=== PATIENT | male | born 1980 | race Caucasian/White ===

== ENCOUNTER → 2017-12-10 | Outpatient (CLI) | payer MEDICARE | END | disposition home or self-care (01) | LOC: PMGWOUND 13:03 | DX: I87.313 Chronic venous hypertension (idiopathic) with ulcer of bilateral lower extremity (principal); L97.222 Non-pressure chronic ulcer of left calf with fat layer exposed; L97.212 Non-pressure chronic ulcer of right calf with fat layer exposed; F41.9 Anxiety disorder, unspecified; F42.9 Obsessive-compulsive disorder, unspecified | CPT/HCPCS: 29581; 97597; 97598 ==

== ENCOUNTER → 2017-12-12 | Outpatient (CLI) | payer MEDICARE | END | disposition home or self-care (01) | LOC: PMGWOUND 09:49 | DX: I87.313 Chronic venous hypertension (idiopathic) with ulcer of bilateral lower extremity (principal); L97.212 Non-pressure chronic ulcer of right calf with fat layer exposed; L97.222 Non-pressure chronic ulcer of left calf with fat layer exposed; F41.9 Anxiety disorder, unspecified; F42.9 Obsessive-compulsive disorder, unspecified | CPT/HCPCS: 29581; 97597; 97598 ==

== ENCOUNTER → 2017-12-17 | Outpatient (CLI) | payer MEDICARE | END | disposition home or self-care (01) | LOC: PMGWOUND 12:50 | DX: I87.313 Chronic venous hypertension (idiopathic) with ulcer of bilateral lower extremity (principal); L97.212 Non-pressure chronic ulcer of right calf with fat layer exposed; L97.222 Non-pressure chronic ulcer of left calf with fat layer exposed; F41.9 Anxiety disorder, unspecified | CPT/HCPCS: 97597; 97598 ==

== ENCOUNTER → 2017-12-24 | Outpatient (CLI) | payer MEDICARE | END | disposition home or self-care (01) | LOC: PMGWOUND 13:36 | DX: I87.313 Chronic venous hypertension (idiopathic) with ulcer of bilateral lower extremity (principal); L97.212 Non-pressure chronic ulcer of right calf with fat layer exposed; L97.222 Non-pressure chronic ulcer of left calf with fat layer exposed; F41.9 Anxiety disorder, unspecified | CPT/HCPCS: 29581; 97597; 97598 ==

== ENCOUNTER → 2017-12-31 | Outpatient (CLI) | payer MEDICARE | END | disposition home or self-care (01) | LOC: PMGWOUND 10:00 | DX: I87.313 Chronic venous hypertension (idiopathic) with ulcer of bilateral lower extremity (principal); L97.212 Non-pressure chronic ulcer of right calf with fat layer exposed; L97.222 Non-pressure chronic ulcer of left calf with fat layer exposed; F41.9 Anxiety disorder, unspecified | CPT/HCPCS: 29581 ==

== ENCOUNTER → 2018-01-07 | Outpatient (CLI) | payer MEDICARE | END | disposition home or self-care (01) | LOC: PMGWOUND 12:51 | DX: I87.313 Chronic venous hypertension (idiopathic) with ulcer of bilateral lower extremity (principal); L97.212 Non-pressure chronic ulcer of right calf with fat layer exposed; L97.222 Non-pressure chronic ulcer of left calf with fat layer exposed; F41.9 Anxiety disorder, unspecified | CPT/HCPCS: 97597; 97598 ==

== ENCOUNTER → 2018-01-14 | Outpatient (CLI) | payer MEDICARE | END | disposition home or self-care (01) | LOC: PMGWOUND 11:48 | DX: I87.313 Chronic venous hypertension (idiopathic) with ulcer of bilateral lower extremity (principal); L97.222 Non-pressure chronic ulcer of left calf with fat layer exposed; L97.212 Non-pressure chronic ulcer of right calf with fat layer exposed; F41.9 Anxiety disorder, unspecified; F42.9 Obsessive-compulsive disorder, unspecified | CPT/HCPCS: 29581; 97597; 97598 ==

== ENCOUNTER → 2018-01-23 | Outpatient (CLI) | payer MEDICARE | END | disposition home or self-care (01) | LOC: PMGWOUND 11:50 | DX: I87.313 Chronic venous hypertension (idiopathic) with ulcer of bilateral lower extremity (principal); L97.222 Non-pressure chronic ulcer of left calf with fat layer exposed; L97.212 Non-pressure chronic ulcer of right calf with fat layer exposed; F41.9 Anxiety disorder, unspecified; F42.9 Obsessive-compulsive disorder, unspecified | CPT/HCPCS: 29581; 97597; 97598 ==

== ENCOUNTER → 2018-01-27 | Outpatient (CLI) | payer MEDICARE | END | disposition home or self-care (01) | LOC: PMGWOUND 12:25 | DX: I87.313 Chronic venous hypertension (idiopathic) with ulcer of bilateral lower extremity (principal); L97.222 Non-pressure chronic ulcer of left calf with fat layer exposed; L97.212 Non-pressure chronic ulcer of right calf with fat layer exposed; F41.9 Anxiety disorder, unspecified; F42.9 Obsessive-compulsive disorder, unspecified | CPT/HCPCS: 29581; 97597; 97598 ==

== ENCOUNTER → 2018-02-04 | Outpatient (CLI) | payer MEDICARE | END | disposition home or self-care (01) | LOC: PMGWOUND 13:35 | DX: I87.313 Chronic venous hypertension (idiopathic) with ulcer of bilateral lower extremity (principal); L97.212 Non-pressure chronic ulcer of right calf with fat layer exposed; L97.222 Non-pressure chronic ulcer of left calf with fat layer exposed; F41.9 Anxiety disorder, unspecified | CPT/HCPCS: 29581; 97597 ==

== ENCOUNTER → 2018-02-11 | Outpatient (CLI) | payer MEDICARE | END | disposition home or self-care (01) | LOC: PMGWOUND 12:25 | DX: I87.313 Chronic venous hypertension (idiopathic) with ulcer of bilateral lower extremity (principal); L97.212 Non-pressure chronic ulcer of right calf with fat layer exposed; L97.222 Non-pressure chronic ulcer of left calf with fat layer exposed; F41.9 Anxiety disorder, unspecified | CPT/HCPCS: 29581 ==

== ENCOUNTER → 2018-02-18 | Outpatient (CLI) | payer MEDICARE | END | disposition home or self-care (01) | LOC: PMGWOUND 13:07 | DX: I87.313 Chronic venous hypertension (idiopathic) with ulcer of bilateral lower extremity (principal); L97.212 Non-pressure chronic ulcer of right calf with fat layer exposed; L97.222 Non-pressure chronic ulcer of left calf with fat layer exposed; F41.9 Anxiety disorder, unspecified | CPT/HCPCS: 17250; 97597; 97598 ==

== ENCOUNTER → 2018-02-25 | Outpatient (CLI) | payer MEDICARE | END | disposition home or self-care (01) | LOC: PMGWOUND 12:28 | DX: I87.313 Chronic venous hypertension (idiopathic) with ulcer of bilateral lower extremity (principal); L97.212 Non-pressure chronic ulcer of right calf with fat layer exposed; L97.222 Non-pressure chronic ulcer of left calf with fat layer exposed; F41.9 Anxiety disorder, unspecified | CPT/HCPCS: 29581; 97597; 97598 ==

== ENCOUNTER → 2018-03-04 | Outpatient (CLI) | payer MEDICARE | END | disposition home or self-care (01) | LOC: PMGWOUND 13:26 | DX: I87.313 Chronic venous hypertension (idiopathic) with ulcer of bilateral lower extremity (principal); L97.212 Non-pressure chronic ulcer of right calf with fat layer exposed; L97.222 Non-pressure chronic ulcer of left calf with fat layer exposed; F41.9 Anxiety disorder, unspecified | CPT/HCPCS: 97597 ==

== ENCOUNTER → 2018-03-11 | Outpatient (CLI) | payer MEDICARE | END | disposition home or self-care (01) | LOC: PMGWOUND 13:15 | DX: I87.313 Chronic venous hypertension (idiopathic) with ulcer of bilateral lower extremity (principal); L97.212 Non-pressure chronic ulcer of right calf with fat layer exposed; L97.222 Non-pressure chronic ulcer of left calf with fat layer exposed; F41.9 Anxiety disorder, unspecified | CPT/HCPCS: 29581 ==

== ENCOUNTER → 2018-03-18 | Outpatient (CLI) | payer MEDICARE | END | disposition home or self-care (01) | LOC: PMGWOUND 12:58 | DX: I87.313 Chronic venous hypertension (idiopathic) with ulcer of bilateral lower extremity (principal); L97.212 Non-pressure chronic ulcer of right calf with fat layer exposed; L97.222 Non-pressure chronic ulcer of left calf with fat layer exposed; F41.9 Anxiety disorder, unspecified | CPT/HCPCS: 29581; 97597; 97598 ==

== ENCOUNTER → 2018-03-25 | Outpatient (CLI) | payer MEDICARE | END | disposition home or self-care (01) | LOC: PMGWOUND 12:40 | DX: I87.313 Chronic venous hypertension (idiopathic) with ulcer of bilateral lower extremity (principal); L97.212 Non-pressure chronic ulcer of right calf with fat layer exposed; L97.222 Non-pressure chronic ulcer of left calf with fat layer exposed; F41.9 Anxiety disorder, unspecified | CPT/HCPCS: 29581 ==

== ENCOUNTER → 2018-04-01 | Outpatient (CLI) | payer MEDICARE | END | disposition home or self-care (01) | LOC: PMGWOUND 12:55 | DX: I87.313 Chronic venous hypertension (idiopathic) with ulcer of bilateral lower extremity (principal); L97.212 Non-pressure chronic ulcer of right calf with fat layer exposed; L97.222 Non-pressure chronic ulcer of left calf with fat layer exposed; F41.9 Anxiety disorder, unspecified | CPT/HCPCS: 29581 ==

== ENCOUNTER → 2018-04-08 | Outpatient (CLI) | payer MEDICARE | END | disposition home or self-care (01) | LOC: PMGWOUND 12:46 | DX: I87.313 Chronic venous hypertension (idiopathic) with ulcer of bilateral lower extremity (principal); L97.212 Non-pressure chronic ulcer of right calf with fat layer exposed; L97.222 Non-pressure chronic ulcer of left calf with fat layer exposed; F41.9 Anxiety disorder, unspecified | CPT/HCPCS: 29581 ==

== ENCOUNTER → 2018-04-15 | Outpatient (CLI) | payer MEDICARE | END | disposition home or self-care (01) | LOC: PMGWOUND 12:49 | DX: I87.313 Chronic venous hypertension (idiopathic) with ulcer of bilateral lower extremity (principal); L97.212 Non-pressure chronic ulcer of right calf with fat layer exposed; L97.222 Non-pressure chronic ulcer of left calf with fat layer exposed; F41.9 Anxiety disorder, unspecified | CPT/HCPCS: 29581; 97597 ==

== ENCOUNTER → 2018-04-22 | Outpatient (CLI) | payer MEDICARE | END | disposition home or self-care (01) | LOC: PMGWOUND 13:05 | DX: I87.313 Chronic venous hypertension (idiopathic) with ulcer of bilateral lower extremity (principal); L97.212 Non-pressure chronic ulcer of right calf with fat layer exposed; L97.222 Non-pressure chronic ulcer of left calf with fat layer exposed; L97.311 Non-pressure chronic ulcer of right ankle limited to breakdown of skin; F41.9 Anxiety disorder, unspecified | CPT/HCPCS: 29581 ==

== ENCOUNTER → 2018-04-29 | Outpatient (CLI) | payer MEDICARE | END | disposition home or self-care (01) | LOC: PMGWOUND 13:19 | DX: I87.313 Chronic venous hypertension (idiopathic) with ulcer of bilateral lower extremity (principal); L97.212 Non-pressure chronic ulcer of right calf with fat layer exposed; L97.222 Non-pressure chronic ulcer of left calf with fat layer exposed; F41.9 Anxiety disorder, unspecified | CPT/HCPCS: 29581; 97597 ==

== ENCOUNTER → 2018-05-06 | Outpatient (CLI) | payer MEDICARE | END | disposition home or self-care (01) | LOC: PMGWOUND 13:37 | DX: I87.312 Chronic venous hypertension (idiopathic) with ulcer of left lower extremity (principal); L97.222 Non-pressure chronic ulcer of left calf with fat layer exposed; F41.9 Anxiety disorder, unspecified; L84 Corns and callosities | CPT/HCPCS: 29581; 97597; 97598 ==

== ENCOUNTER → 2018-05-13 | Outpatient (CLI) | payer MEDICARE | END | disposition home or self-care (01) | LOC: PMGWOUND 13:20 | DX: I87.313 Chronic venous hypertension (idiopathic) with ulcer of bilateral lower extremity (principal); L97.222 Non-pressure chronic ulcer of left calf with fat layer exposed; L89.899 Pressure ulcer of other site, unspecified stage; F41.9 Anxiety disorder, unspecified; L84 Corns and callosities | CPT/HCPCS: 11042; 29581; 97597 ==

== ENCOUNTER → 2018-05-20 | Outpatient (CLI) | payer MEDICARE | END | disposition home or self-care (01) | LOC: PMGWOUND 13:31 | DX: I87.313 Chronic venous hypertension (idiopathic) with ulcer of bilateral lower extremity (principal); L97.222 Non-pressure chronic ulcer of left calf with fat layer exposed; L97.211 Non-pressure chronic ulcer of right calf limited to breakdown of skin; F41.9 Anxiety disorder, unspecified; L84 Corns and callosities | CPT/HCPCS: 29581 ==

== ENCOUNTER → 2018-05-27 | Outpatient (CLI) | payer MEDICARE | END | disposition home or self-care (01) | LOC: PMGWOUND 12:47 | DX: I87.313 Chronic venous hypertension (idiopathic) with ulcer of bilateral lower extremity (principal); L97.222 Non-pressure chronic ulcer of left calf with fat layer exposed; L97.211 Non-pressure chronic ulcer of right calf limited to breakdown of skin; F41.9 Anxiety disorder, unspecified; L84 Corns and callosities | CPT/HCPCS: 29581 ==

== ENCOUNTER → 2018-06-03 | Outpatient (CLI) | payer MEDICARE | END | disposition home or self-care (01) | LOC: PMGWOUND 13:31 | DX: I87.313 Chronic venous hypertension (idiopathic) with ulcer of bilateral lower extremity (principal); L97.222 Non-pressure chronic ulcer of left calf with fat layer exposed; L97.211 Non-pressure chronic ulcer of right calf limited to breakdown of skin; F41.9 Anxiety disorder, unspecified; L84 Corns and callosities | CPT/HCPCS: 29580; 29581; 97597 ==

== ENCOUNTER → 2018-06-10 | Outpatient (CLI) | payer MEDICARE | END | disposition home or self-care (01) | LOC: PMGWOUND 12:51 | DX: I87.313 Chronic venous hypertension (idiopathic) with ulcer of bilateral lower extremity (principal); L97.222 Non-pressure chronic ulcer of left calf with fat layer exposed; L97.211 Non-pressure chronic ulcer of right calf limited to breakdown of skin; F41.9 Anxiety disorder, unspecified; L84 Corns and callosities | CPT/HCPCS: 29580; 97597 ==

== ENCOUNTER → 2018-06-17 | Outpatient (CLI) | payer MEDICARE | END | disposition home or self-care (01) | LOC: PMGWOUND 13:02 | DX: I87.313 Chronic venous hypertension (idiopathic) with ulcer of bilateral lower extremity (principal); L97.222 Non-pressure chronic ulcer of left calf with fat layer exposed; L97.811 Non-pressure chronic ulcer of other part of right lower leg limited to breakdown of skin; F41.9 Anxiety disorder, unspecified | CPT/HCPCS: 29580; 97597 ==

== ENCOUNTER → 2018-06-24 | Outpatient (CLI) | payer MEDICARE | END | disposition home or self-care (01) | LOC: PMGWOUND 12:26 | DX: I87.312 Chronic venous hypertension (idiopathic) with ulcer of left lower extremity (principal); L97.222 Non-pressure chronic ulcer of left calf with fat layer exposed; F41.9 Anxiety disorder, unspecified | CPT/HCPCS: 29581 ==

== ENCOUNTER → 2018-07-01 | Outpatient (CLI) | payer MEDICARE | END | disposition home or self-care (01) | LOC: PMGWOUND 13:22 | DX: I87.312 Chronic venous hypertension (idiopathic) with ulcer of left lower extremity (principal); L97.222 Non-pressure chronic ulcer of left calf with fat layer exposed; F41.9 Anxiety disorder, unspecified | CPT/HCPCS: 11042; 29581 ==

== ENCOUNTER → 2018-07-08 | Outpatient (CLI) | payer MEDICARE | END | disposition home or self-care (01) | LOC: PMGWOUND 12:58 | DX: I87.312 Chronic venous hypertension (idiopathic) with ulcer of left lower extremity (principal); L97.222 Non-pressure chronic ulcer of left calf with fat layer exposed; F41.9 Anxiety disorder, unspecified | CPT/HCPCS: 29581; 97597 ==

== ENCOUNTER → 2018-07-15 | Outpatient (CLI) | payer MEDICARE ==
[2017-12-06 15:00] VITALS: BP 128/78
[~2018-07-15] MED LIST: ASCO500T2 PO; ASPI325T8 PO; DOXY100T9 PO; MULT1TAB52 PO; ZINC220C5 PO
== END | disposition home or self-care (01) ==
LOC: PMGWOUND 13:00
PROVIDERS: ATTEND Emergency Medicine Undersea and Hyperbaric Medicine
DX: I87.312 Chronic venous hypertension (idiopathic) with ulcer of left lower extremity (principal); L97.222 Non-pressure chronic ulcer of left calf with fat layer exposed; L84 Corns and callosities; F41.9 Anxiety disorder, unspecified
CPT/HCPCS: 97597

== ENCOUNTER → 2018-07-22 | Outpatient (CLI) | payer MEDICARE ==
[2017-12-06 15:00] VITALS: BP 128/78
== END | disposition home or self-care (01) ==
LOC: PMGWOUND 07-15 13:01
PROVIDERS: ATTEND Emergency Medicine Undersea and Hyperbaric Medicine
DX: I87.312 Chronic venous hypertension (idiopathic) with ulcer of left lower extremity (principal); L97.222 Non-pressure chronic ulcer of left calf with fat layer exposed; L97.322 Non-pressure chronic ulcer of left ankle with fat layer exposed; F41.9 Anxiety disorder, unspecified; L84 Corns and callosities; F42.9 Obsessive-compulsive disorder, unspecified
CPT/HCPCS: 99214; G0463

== ENCOUNTER → 2018-07-29 | Outpatient (CLI) | payer MEDICARE ==
[2017-12-06 15:00] VITALS: BP 128/78
== END | disposition home or self-care (01) ==
LOC: PMGWOUND 11:31
PROVIDERS: ATTEND Emergency Medicine Undersea and Hyperbaric Medicine
DX: I87.312 Chronic venous hypertension (idiopathic) with ulcer of left lower extremity (principal); L97.222 Non-pressure chronic ulcer of left calf with fat layer exposed; F41.9 Anxiety disorder, unspecified; F42.9 Obsessive-compulsive disorder, unspecified; L84 Corns and callosities
CPT/HCPCS: 29580; 29581

== ENCOUNTER → 2018-07-29 | Outpatient (CLI) | payer MEDICARE ==
[2017-12-06 15:00] VITALS: BP 128/78
--- NOTE | 2018-07-29 15:10 | RAD ---
Bilateral lower extremity venous insufficiency ultrasound exam, 07/29/2018: HISTORY: Nonhealing left leg ulcer, bilateral discoloration Duplex evaluation of the greater saphenous and lesser saphenous veins was performed including grayscale, color-flow and spectral Doppler analysis. On the right, there is significant reflux in the greater saphenous vein which measures 7 mm in diameter near the saphenofemoral junction and demonstrates a reflux time of 1.7 seconds. In the upper right calf the greater saphenous vein measures 3.7 mm and demonstrates a reflux time of 2.3 seconds. A single incompetent perforating vein was identified in the right lower leg, approximately 18 cm up from the ankle. The right lesser saphenous vein measures approximately 4 mm and also demonstrates significant reflux with a reflux time of 1.5 seconds. On the left, the greater saphenous vein measures 7.9 mm at the level of the saphenofemoral junction and demonstrates a reflux time of 1.1 second. In the mid left calf the greater saphenous vein measures 3.4 mm with a reflux time of 2.7 seconds. Three incompetent perforating veins are noted in the left lower leg as fully delineated on the technologist worksheet. These drain into the regions of the patient's ulcers. The left lesser saphenous vein measures 5.1 cm at the upper calf level and demonstrates a reflux time 1.6 seconds. IMPRESSION: 1. Significant venous reflux is identified in the greater saphenous and lesser saphenous veins in both lower extremities as described above. 2. A single incompetent perforating vein is noted in the right calf and 3 incompetent perforating veins in the left calf, as delineated on the technologist worksheet available in the [employer] system. Electronically signed by: Porter Quick MD (07/29/2018 3:07 PM) [facility]
== END | disposition home or self-care (01) ==
LOC: US 14:34
PROVIDERS: ATTEND Emergency Medicine Undersea and Hyperbaric Medicine
DX: I87.312 Chronic venous hypertension (idiopathic) with ulcer of left lower extremity (principal); L97.222 Non-pressure chronic ulcer of left calf with fat layer exposed; F41.9 Anxiety disorder, unspecified
CPT/HCPCS: 93970

== ENCOUNTER → 2018-08-12 | Outpatient (CLI) | payer MEDICARE ==
[2017-12-06 15:00] VITALS: BP 128/78
== END | disposition home or self-care (01) ==
LOC: PMGWOUND 13:02
PROVIDERS: ATTEND Emergency Medicine Undersea and Hyperbaric Medicine
DX: I87.312 Chronic venous hypertension (idiopathic) with ulcer of left lower extremity (principal); L97.222 Non-pressure chronic ulcer of left calf with fat layer exposed; L84 Corns and callosities; F41.9 Anxiety disorder, unspecified; F42.9 Obsessive-compulsive disorder, unspecified
CPT/HCPCS: 29580; 29581; 97597

== ENCOUNTER → 2018-08-20 | Outpatient (CLI) | payer MEDICARE ==
[2017-12-06 15:00] VITALS: BP 128/78
== END | disposition home or self-care (01) ==
LOC: PMGWOUND 12:02
PROVIDERS: ATTEND Preventive Medicine Undersea and Hyperbaric Medicine
DX: I87.312 Chronic venous hypertension (idiopathic) with ulcer of left lower extremity (principal); L97.222 Non-pressure chronic ulcer of left calf with fat layer exposed; L84 Corns and callosities; F41.9 Anxiety disorder, unspecified; F42.9 Obsessive-compulsive disorder, unspecified
CPT/HCPCS: 29580

== ENCOUNTER → 2018-08-26 | Outpatient (CLI) | payer MEDICARE ==
[2017-12-06 15:00] VITALS: BP 128/78
== END | disposition home or self-care (01) ==
LOC: PMGWOUND 12:48
PROVIDERS: ATTEND Emergency Medicine Undersea and Hyperbaric Medicine
DX: I87.313 Chronic venous hypertension (idiopathic) with ulcer of bilateral lower extremity (principal); L97.222 Non-pressure chronic ulcer of left calf with fat layer exposed; L84 Corns and callosities; F41.9 Anxiety disorder, unspecified
CPT/HCPCS: 29580; 97597

== ENCOUNTER → 2018-09-02 | Outpatient (CLI) | payer MEDICARE ==
[2017-12-06 15:00] VITALS: BP 128/78
== END | disposition home or self-care (01) ==
LOC: PMGWOUND 13:18
PROVIDERS: ATTEND Emergency Medicine Undersea and Hyperbaric Medicine
DX: I87.313 Chronic venous hypertension (idiopathic) with ulcer of bilateral lower extremity (principal); L97.222 Non-pressure chronic ulcer of left calf with fat layer exposed; L97.321 Non-pressure chronic ulcer of left ankle limited to breakdown of skin; L84 Corns and callosities; F41.9 Anxiety disorder, unspecified
CPT/HCPCS: 97597

== ENCOUNTER → 2018-09-09 | Outpatient (CLI) | payer MEDICARE ==
[2017-12-06 15:00] VITALS: BP 128/78
== END | disposition home or self-care (01) ==
LOC: PMGWOUND 13:15
PROVIDERS: ATTEND Emergency Medicine Undersea and Hyperbaric Medicine
DX: I87.313 Chronic venous hypertension (idiopathic) with ulcer of bilateral lower extremity (principal); L97.222 Non-pressure chronic ulcer of left calf with fat layer exposed; L84 Corns and callosities; F41.9 Anxiety disorder, unspecified
CPT/HCPCS: 99214; G0463

== ENCOUNTER → 2018-09-18 | Outpatient (CLI) | payer MEDICARE ==
[2017-12-06 15:00] VITALS: BP 128/78
--- NOTE | 2018-09-18 11:33 | RAD ---
MR#: [id number] Date of Study: 09/18/2018 Ordering Physician: LUIS E TOWNSEND, Referring Physician: ILANA POP Tech: Mary Kate Amaya RDMS RVT APPROVED REPORT Bilateral Lower Extremity Venous Study for DVT Patient Location: OUT-PATIENT Indications VENOUS INSUFFICIENCY Findings The bilateral lower extremity deep veins were evaluated for thrombus with color Doppler, spectral and grayscale images. On the right the grayscale images of the common femoral, superficial femoral and popliteal veins do n ot demonstrate any evidence of thrombus and these veins appear to be compressible. The below-knee vei ns were not well visualized but grossly appear to be compressible. Spectral imaging and color Doppler do not reveal any evidence of obstruction to flow with normal respirophasic variation above the knee . Below the knee there is spontaneous flow noted. On the left, the grayscale images of the common femoral, superficial femoral and popliteal veins do n ot demonstrate any evidence of thrombus and these veins appear to be compressible. The below-knee vei ns again were not well visualized but grossly appear to be compressible. Spectral imaging and color D oppler do not reveal any evidence of obstruction to flow with normal respirophasic variation above th e knee. The below-knee veins demonstrate spontaneous flow. Critical Notification Critical Value: No <Conclusion> Negative for DVT in the bilateral lower extremities. Signed by : Jamshid Lane, Electronically Approved : 09/18/2018 11:32:13
== END | disposition home or self-care (01) ==
LOC: US 10:10
PROVIDERS: ATTEND Emergency Medicine Undersea and Hyperbaric Medicine
DX: I87.313 Chronic venous hypertension (idiopathic) with ulcer of bilateral lower extremity (principal); L97.222 Non-pressure chronic ulcer of left calf with fat layer exposed; L97.321 Non-pressure chronic ulcer of left ankle limited to breakdown of skin; L84 Corns and callosities; F41.9 Anxiety disorder, unspecified
CPT/HCPCS: 29581; 93970; 97597

== ENCOUNTER → 2018-09-23 | Outpatient (CLI) | payer MEDICARE ==
[2017-12-06 15:00] VITALS: BP 128/78
== END | disposition home or self-care (01) ==
LOC: PMGWOUND 12:09
PROVIDERS: ATTEND Emergency Medicine Undersea and Hyperbaric Medicine
DX: I87.312 Chronic venous hypertension (idiopathic) with ulcer of left lower extremity (principal); L97.222 Non-pressure chronic ulcer of left calf with fat layer exposed; L97.321 Non-pressure chronic ulcer of left ankle limited to breakdown of skin; L84 Corns and callosities; F41.9 Anxiety disorder, unspecified
CPT/HCPCS: 29581

== ENCOUNTER → 2018-09-30 | Outpatient (CLI) | payer MEDICARE ==
[2017-12-06 15:00] VITALS: BP 128/78
== END | disposition home or self-care (01) ==
LOC: PMGWOUND 12:32
PROVIDERS: ATTEND Emergency Medicine Undersea and Hyperbaric Medicine
DX: I87.312 Chronic venous hypertension (idiopathic) with ulcer of left lower extremity (principal); L97.222 Non-pressure chronic ulcer of left calf with fat layer exposed; L84 Corns and callosities; F41.9 Anxiety disorder, unspecified
CPT/HCPCS: 29581

== ENCOUNTER → 2018-10-07 | Outpatient (CLI) | payer MEDICARE ==
[2017-12-06 15:00] VITALS: BP 128/78
== END | disposition home or self-care (01) ==
LOC: PMGWOUND 13:23
PROVIDERS: ATTEND Emergency Medicine Undersea and Hyperbaric Medicine
DX: I87.312 Chronic venous hypertension (idiopathic) with ulcer of left lower extremity (principal); L97.222 Non-pressure chronic ulcer of left calf with fat layer exposed; L84 Corns and callosities; F41.9 Anxiety disorder, unspecified
CPT/HCPCS: 29581

== ENCOUNTER → 2018-10-14 | Outpatient (CLI) | payer MEDICARE ==
[2017-12-06 15:00] VITALS: BP 128/78
== END | disposition home or self-care (01) ==
LOC: PMGWOUND 12:16
PROVIDERS: ATTEND Emergency Medicine Undersea and Hyperbaric Medicine
DX: I87.313 Chronic venous hypertension (idiopathic) with ulcer of bilateral lower extremity (principal); L97.222 Non-pressure chronic ulcer of left calf with fat layer exposed; L84 Corns and callosities; F41.9 Anxiety disorder, unspecified
CPT/HCPCS: 29581; 97597

== ENCOUNTER → 2018-10-22 | Outpatient (CLI) | payer MEDICARE ==
[2017-12-06 15:00] VITALS: BP 128/78
== END | disposition home or self-care (01) ==
LOC: PMGWOUND 11:19
PROVIDERS: ATTEND Preventive Medicine Undersea and Hyperbaric Medicine
DX: I87.312 Chronic venous hypertension (idiopathic) with ulcer of left lower extremity (principal); L97.222 Non-pressure chronic ulcer of left calf with fat layer exposed; L84 Corns and callosities; F41.9 Anxiety disorder, unspecified
CPT/HCPCS: 29581

== ENCOUNTER → 2018-10-28 | Outpatient (CLI) | payer MEDICARE ==
[2017-12-06 15:00] VITALS: BP 128/78
== END | disposition home or self-care (01) ==
LOC: PMGWOUND 12:15
PROVIDERS: ATTEND Emergency Medicine Undersea and Hyperbaric Medicine
DX: I87.312 Chronic venous hypertension (idiopathic) with ulcer of left lower extremity (principal); L97.222 Non-pressure chronic ulcer of left calf with fat layer exposed; L84 Corns and callosities; F41.9 Anxiety disorder, unspecified
CPT/HCPCS: 29581

== ENCOUNTER → 2018-11-04 | Outpatient (CLI) | payer MEDICARE ==
[2017-12-06 15:00] VITALS: BP 128/78
== END | disposition home or self-care (01) ==
LOC: PMGWOUND 13:01
PROVIDERS: ATTEND Emergency Medicine Undersea and Hyperbaric Medicine
DX: I87.312 Chronic venous hypertension (idiopathic) with ulcer of left lower extremity (principal); L97.222 Non-pressure chronic ulcer of left calf with fat layer exposed; L84 Corns and callosities; F41.9 Anxiety disorder, unspecified
CPT/HCPCS: 29581; 97597

== ENCOUNTER → 2018-11-11 | Outpatient (CLI) | payer MEDICARE ==
[2017-12-06 15:00] VITALS: BP 128/78
== END | disposition home or self-care (01) ==
LOC: PMGWOUND 12:22
PROVIDERS: ATTEND Emergency Medicine Undersea and Hyperbaric Medicine
DX: I87.312 Chronic venous hypertension (idiopathic) with ulcer of left lower extremity (principal); L97.222 Non-pressure chronic ulcer of left calf with fat layer exposed; L84 Corns and callosities; F41.9 Anxiety disorder, unspecified
CPT/HCPCS: 29581; 97597

== ENCOUNTER → 2018-11-18 | Outpatient (CLI) | payer MEDICARE ==
[2017-12-06 15:00] VITALS: BP 128/78
== END | disposition home or self-care (01) ==
LOC: PMGWOUND 12:58
PROVIDERS: ATTEND Emergency Medicine Undersea and Hyperbaric Medicine
DX: I87.312 Chronic venous hypertension (idiopathic) with ulcer of left lower extremity (principal); L97.222 Non-pressure chronic ulcer of left calf with fat layer exposed; L84 Corns and callosities; F41.9 Anxiety disorder, unspecified
CPT/HCPCS: 11042; 11045; 29581

== ENCOUNTER → 2018-11-27 | Outpatient (CLI) | payer MEDICARE ==
[2017-12-06 15:00] VITALS: BP 128/78
== END | disposition home or self-care (01) ==
LOC: PMGWOUND 12:28
PROVIDERS: ATTEND Emergency Medicine Undersea and Hyperbaric Medicine
DX: I87.312 Chronic venous hypertension (idiopathic) with ulcer of left lower extremity (principal); L97.222 Non-pressure chronic ulcer of left calf with fat layer exposed; L84 Corns and callosities; F41.9 Anxiety disorder, unspecified
CPT/HCPCS: 29581

== ENCOUNTER → 2018-12-04 | Outpatient (CLI) | payer MEDICARE ==
[2017-12-06 15:00] VITALS: BP 128/78
== END | disposition home or self-care (01) ==
LOC: PMGWOUND 12:47
PROVIDERS: ATTEND Emergency Medicine Undersea and Hyperbaric Medicine
DX: I87.312 Chronic venous hypertension (idiopathic) with ulcer of left lower extremity (principal); L97.222 Non-pressure chronic ulcer of left calf with fat layer exposed; L84 Corns and callosities; F41.9 Anxiety disorder, unspecified
CPT/HCPCS: 29581; 97597

== ENCOUNTER → 2018-12-09 | Outpatient (CLI) | payer MEDICARE ==
[2017-12-06 15:00] VITALS: BP 128/78
== END | disposition home or self-care (01) ==
LOC: PMGWOUND 11:56
PROVIDERS: ATTEND Emergency Medicine Undersea and Hyperbaric Medicine
DX: I87.312 Chronic venous hypertension (idiopathic) with ulcer of left lower extremity (principal); L97.222 Non-pressure chronic ulcer of left calf with fat layer exposed; L84 Corns and callosities; F41.9 Anxiety disorder, unspecified
CPT/HCPCS: 29581

== ENCOUNTER → 2018-12-16 | Outpatient (CLI) | payer MEDICARE ==
[2017-12-06 15:00] VITALS: BP 128/78
== END | disposition home or self-care (01) ==
LOC: PMGWOUND 11:51
PROVIDERS: ATTEND Emergency Medicine Undersea and Hyperbaric Medicine
DX: I87.312 Chronic venous hypertension (idiopathic) with ulcer of left lower extremity (principal); L97.222 Non-pressure chronic ulcer of left calf with fat layer exposed; L84 Corns and callosities; F41.9 Anxiety disorder, unspecified
CPT/HCPCS: 29581

== ENCOUNTER → 2018-12-23 | Outpatient (CLI) | payer MEDICARE ==
[2017-12-06 15:00] VITALS: BP 128/78
== END | disposition home or self-care (01) ==
LOC: PMGWOUND 12:00
PROVIDERS: ATTEND Emergency Medicine Undersea and Hyperbaric Medicine
DX: I87.312 Chronic venous hypertension (idiopathic) with ulcer of left lower extremity (principal); L97.222 Non-pressure chronic ulcer of left calf with fat layer exposed; L84 Corns and callosities; F41.9 Anxiety disorder, unspecified
CPT/HCPCS: 29581

== ENCOUNTER → 2018-12-30 | Outpatient (CLI) | payer MEDICARE ==
[2017-12-06 15:00] VITALS: BP 128/78
== END | disposition home or self-care (01) ==
LOC: PMGWOUND 12:02
PROVIDERS: ATTEND Nurse Practitioner Family
DX: I87.312 Chronic venous hypertension (idiopathic) with ulcer of left lower extremity (principal); L97.222 Non-pressure chronic ulcer of left calf with fat layer exposed; L84 Corns and callosities; F41.9 Anxiety disorder, unspecified
CPT/HCPCS: 29581; 99213

== ENCOUNTER → 2019-01-06 | Outpatient (CLI) | payer MEDICARE ==
[2017-12-06 15:00] VITALS: BP 128/78
== END | disposition home or self-care (01) ==
LOC: PMGWOUND 12:30
PROVIDERS: ATTEND Emergency Medicine Undersea and Hyperbaric Medicine
DX: I87.312 Chronic venous hypertension (idiopathic) with ulcer of left lower extremity (principal); L97.222 Non-pressure chronic ulcer of left calf with fat layer exposed; F41.9 Anxiety disorder, unspecified; L84 Corns and callosities
CPT/HCPCS: 29581

== ENCOUNTER → 2019-01-13 | Outpatient (CLI) | payer MEDICARE ==
[2017-12-06 15:00] VITALS: BP 128/78
== END | disposition home or self-care (01) ==
LOC: PMGWOUND 12:27
PROVIDERS: ATTEND Emergency Medicine Undersea and Hyperbaric Medicine
DX: I87.312 Chronic venous hypertension (idiopathic) with ulcer of left lower extremity (principal); L97.222 Non-pressure chronic ulcer of left calf with fat layer exposed; F41.9 Anxiety disorder, unspecified; L84 Corns and callosities
CPT/HCPCS: 29581

== ENCOUNTER → 2019-01-20 | Outpatient (CLI) | payer MEDICARE ==
[2017-12-06 15:00] VITALS: BP 128/78
== END | disposition home or self-care (01) ==
LOC: PMGWOUND 12:17
PROVIDERS: ATTEND Emergency Medicine Undersea and Hyperbaric Medicine
DX: I87.312 Chronic venous hypertension (idiopathic) with ulcer of left lower extremity (principal); L97.222 Non-pressure chronic ulcer of left calf with fat layer exposed; L97.321 Non-pressure chronic ulcer of left ankle limited to breakdown of skin; L84 Corns and callosities; F41.9 Anxiety disorder, unspecified
CPT/HCPCS: 29581

== ENCOUNTER → 2019-01-27 | Outpatient (CLI) | payer MEDICARE ==
[2017-12-06 15:00] VITALS: BP 128/78
== END | disposition home or self-care (01) ==
LOC: PMGWOUND 12:01
PROVIDERS: ATTEND Emergency Medicine Undersea and Hyperbaric Medicine
DX: I87.312 Chronic venous hypertension (idiopathic) with ulcer of left lower extremity (principal); L97.222 Non-pressure chronic ulcer of left calf with fat layer exposed; L97.321 Non-pressure chronic ulcer of left ankle limited to breakdown of skin; L84 Corns and callosities; F41.9 Anxiety disorder, unspecified
CPT/HCPCS: 29581

== ENCOUNTER → 2019-02-03 | Outpatient (CLI) | payer MEDICARE ==
[2017-12-06 15:00] VITALS: BP 128/78
== END | disposition home or self-care (01) ==
LOC: PMGWOUND 12:52
PROVIDERS: ATTEND Emergency Medicine Undersea and Hyperbaric Medicine
DX: I87.312 Chronic venous hypertension (idiopathic) with ulcer of left lower extremity (principal); L97.222 Non-pressure chronic ulcer of left calf with fat layer exposed; L97.321 Non-pressure chronic ulcer of left ankle limited to breakdown of skin; L84 Corns and callosities; F41.9 Anxiety disorder, unspecified
CPT/HCPCS: 99214; G0463

== ENCOUNTER → 2019-02-10 | Outpatient (CLI) | payer MEDICARE ==
[2017-12-06 15:00] VITALS: BP 128/78
== END | disposition home or self-care (01) ==
LOC: PMGWOUND 12:54
PROVIDERS: ATTEND Emergency Medicine Undersea and Hyperbaric Medicine
DX: I87.312 Chronic venous hypertension (idiopathic) with ulcer of left lower extremity (principal); L97.222 Non-pressure chronic ulcer of left calf with fat layer exposed; L97.321 Non-pressure chronic ulcer of left ankle limited to breakdown of skin; L84 Corns and callosities; F41.9 Anxiety disorder, unspecified
CPT/HCPCS: 99214; G0463

== ENCOUNTER → 2019-02-17 | Outpatient (CLI) | payer MEDICARE ==
[2017-12-06 15:00] VITALS: BP 128/78
== END | disposition home or self-care (01) ==
LOC: PMGWOUND 12:57
PROVIDERS: ATTEND Emergency Medicine Undersea and Hyperbaric Medicine
DX: I87.313 Chronic venous hypertension (idiopathic) with ulcer of bilateral lower extremity (principal); L97.222 Non-pressure chronic ulcer of left calf with fat layer exposed; L97.321 Non-pressure chronic ulcer of left ankle limited to breakdown of skin; L03.116 Cellulitis of left lower limb; T37.0X5A Adverse effect of sulfonamides, initial encounter; L84 Corns and callosities; F41.9 Anxiety disorder, unspecified
CPT/HCPCS: 29581; 97597

== ENCOUNTER → 2019-02-24 | Outpatient (CLI) | payer MEDICARE ==
[2017-12-06 15:00] VITALS: BP 128/78
== END | disposition home or self-care (01) ==
LOC: PMGWOUND 12:35
PROVIDERS: ATTEND Emergency Medicine Undersea and Hyperbaric Medicine
DX: I87.312 Chronic venous hypertension (idiopathic) with ulcer of left lower extremity (principal); L97.222 Non-pressure chronic ulcer of left calf with fat layer exposed; L97.321 Non-pressure chronic ulcer of left ankle limited to breakdown of skin; L03.116 Cellulitis of left lower limb; L84 Corns and callosities; F41.9 Anxiety disorder, unspecified
CPT/HCPCS: 29581

== ENCOUNTER → 2019-11-26 | Outpatient (CLI) | payer MEDICARE ==
[2017-12-06 15:00] VITALS: BP 128/78
[~2019-11-26] MED LIST changes: +DOXY-96 PO; -DOXY100T9 PO; -ZINC220C5 PO; +ZINC220C7 PO
--- NOTE | 2019-11-26 14:10 | RAD ---
MR#: [id number] Date of Study: 11/26/2019 Ordering Physician: LUIS E TOWNSEND, Referring Physician: LUIS E TOWNSEND, Tech: Lyubov Coughlin, ROEL, RVT, RTR APPROVED REPORT Patient Location : OUT-PATIENT Indications Stasis Disease Venous Ulcers Varicose Veins Skin Changes Non healing Left Ankle Ulcer Findings Limited clerk carrier lower extremity venous reflux study was performed in the left leg. There is a wound at the level of the medial ankle where 2 perforators were noted. The first clerk carrier is a proximally 14 cm up and 3.6 mm in diameter with the second one at approxima tely 11 cm up and 2.7 mm in diameter. Color Doppler evidence of blood flow in these perforators are noted suggesting that this reflux is co ntributing to some of the venous wound. Critical Notification Critical Value: No <Conclusion> 1. 2 perforators noted at the level of the left ankle as described above. Signed by : Jamshid Lane, Electronically Approved : 11/26/2019 14:10:00
== END | disposition home or self-care (01) ==
LOC: US 12:58
PROVIDERS: ATTEND Internal Medicine Cardiovascular Disease
DX: I87.2 Venous insufficiency (chronic) (peripheral) (principal); I83.023 Varicose veins of left lower extremity with ulcer of ankle; L97.329 Non-pressure chronic ulcer of left ankle with unspecified severity
CPT/HCPCS: 93971

== ENCOUNTER → 2020-01-12 | Outpatient (CLI) | payer MEDICARE ==
[2017-12-06 15:00] VITALS: BP 128/78
[~2020-01-12] MED LIST changes: +LIDOCAINE 1%/EPI 1:100,000 25 ML, SODIUM BICARBONATE VIAL 2.5 MEQ in IV NORMAL SALINE 5... SQ STA
--- NOTE | 2020-01-13 13:21 | CARD ---
MR#: [id number] Date of Study: 01/12/2020 Ordering Physician: LUIS E TREVINO, Referring Physician: LUIS E TREVINO, Tech: Lyubov Coughlin RVT; Gerhard BLACK APPROVED REPORT Patient StatusOUT-PATIENT Plastics Engineering Teacher: Lyubov Coughlin RVT; Gerhard BLACK Procedure(s) performed: Endovenous radiofrequency ablation of the incompetent Driller Operator Veins right leg. INDICATION FOR PROCEDURE The indication(s) include : Non healing venous stasis wound right ankle with incompetent shower attendant v eins. PROCEDURE NARRATIVE The patient was transferred to the procedure suite and the insufficient shower attendant veins were mapped by ultrasound and diagrammed on the underlying skin. Patient was found two incompetent shower attendant vei ns underlying the non healing venous stasis wound, 14 cm and 11 cm from the heel on medial aspect of right leg. The patient was then positioned supine on the procedure table. The entire limb was steri clarence prepared and the lower extremity and treatment table were sterilely draped. The RF stylet cath eter was placed on the sterile field, flushed and wiped down, prepared, and connected by a sterile ca ble. The patient was placed in reverse-Trendelenburg position and local anesthesia was instilled in the sk in overlying the access site. A skin incision was made overlying the identified and mapped Perforato r vein entry site. The vein was punctured through the incision and using ultrasound guidance the RF stylet catheter was advanced into the Driller Operator vein. After the RF probe position was verified by t he ultrasound, tumescent anesthesia was infiltrated, under ultrasound guidance, precisely into the pe rivenuus compartment a "halo" of fluid was noted around the vein. The patient was then placed in Trendelenburg position. After the RF probe position was again confirm ed with ultrasound imaging, moderate external compression was applied over the RF heating element, an d RF energy was applied. The probe was withdrawn while treating the incompetent shower attendant vein in a ll four quadrants each quadrant being trreated for 30 seconds. Repeat ultrasound of the Driller Operator v ein was performed confirming successful treatment. The catheter and sheath were withdrawn and hemost asis established with direct pressure. The second Driller Operator vein was then accessed and treated in a similar fashion with total treatment time for the Driller Operator veins 2 mins and 3:30 mins. After assuring hemostasis, the skin incisions over shower attendant veins were closed with a bandage and an external compression dressing was applied from the level of the foot to the most proximal level of t he thigh. Patient tolerated the procedure well. There were no immediate complications. Signed by : Luis E Trevino, Electronically Approved : 01/12/2020 15:30:18
== END ==
LOC: VNUS 14:00
PROVIDERS: ATTEND Internal Medicine Cardiovascular Disease
DX: I83.12 Varicose veins of left lower extremity with inflammation (principal)
CPT/HCPCS: 36475; J3490; J7040

== ENCOUNTER → 2020-01-27 | Outpatient (CLI) | payer MEDICARE ==
[2017-12-06 15:00] VITALS: BP 128/78
[~2020-01-27] MED LIST changes: -LIDOCAINE 1%/EPI 1:100,000 25 ML, SODIUM BICARBONATE VIAL 2.5 MEQ in IV NORMAL SALINE 5... SQ STA
--- NOTE | 2020-01-29 17:51 | RAD ---
INDICATION: Venous insufficiency with ankle wound. COMPARISON: November 2019 FINDINGS: Focused ultrasound images are obtained at the region of the wound at the left lateral ankle. There are multiple vessels seen at the region of the patient's wound including under the wound bed with some of these vessels extending into the region of the wound. This includes branches of the lesser saphenous vein which have a distended appearance. IMPRESSION: * Multiple vessels are identified at the region of the patient's wound at the left lateral ankle including multiple branches of the lesser saphenous vein which are seen directly under the wound bed as well as inferior to it with some of the vessels extending into the region of the patient's wound. Electronically signed by: Scott Grider MD (01/29/2020 5:49 PM) [facility]
== END ==
LOC: US 12:53
PROVIDERS: ATTEND Internal Medicine Cardiovascular Disease
DX: I87.2 Venous insufficiency (chronic) (peripheral) (principal)
CPT/HCPCS: 93971

== ENCOUNTER 2021-08-10 15:22 | Inpatient (IN) | payer MEDICARE ==
[~2021-08-10] VITALS: Ht 177.8 cm; Wt 79.3 kg
[~2021-08-10 15:22] MED LIST changes: -ASCO500T2 PO; +ASCO500T4 PO; +HYDR-2761 PO; +MULT-445 PO; -MULT1TAB52 PO
[2021-08-10] MEDS ORDERED: MORPHINE SULFATE 2 MG/ML INJ. IV PRN ×2 (16:00)
[2021-08-10] MEDS ORDERED: oxyCODONE IR 5 MG TABLET PO PRN (16:00)
[2021-08-10] MEDS ORDERED: ELECTROLYTE (NON-ICU) PROTOCOL. MC PRN (16:00)
[2021-08-10] MEDS ORDERED: CALCIUM CARBONATE 500 MG TAB.CHEW PO PRN (16:00)
[2021-08-10] MEDS ORDERED: ZOLPIDEM 5 MG TABLET. PO PRN (16:00)
[2021-08-10] MEDS ORDERED: ACETAMINOPHEN 325 MG TABLET. PO PRN (16:00)
--- NOTE | 2021-08-10 16:39 | NUR ---
Wound Care: Patient was seen in the outpatient wound clinic today regarding bilateral VLU's, patient is well known to us from the wound clinic as he has been a patient seen since 2017. Patient has ulcers to the right medial lower leg, left medial lower leg, left posterior/lateral lower leg, and left anterior lower leg. Patient is very non-compliant with his wound care and dressing changes, however this is because he suffers from OCD and schizoprenia and is unable to live on own. Patient states he does stand most of the time, but he will tell us hardly any information regarding his home and personal life. We have tried to get this patient to be willing to be admitted for the last 3 week, and the patient continually declines. today upon assessment, these wounds again have all deterioated despite have taken 3 round of ora antibiotics in the last 3 weeks, patient informed that if he was agreeable to admission he did not need to return to the wound center, as he was given 3 weeks on antibiotics and they did not improve. These wounds were cleansed, assessed, measured, and photograph by this RN. Patient was agreeable to admission today. RAFAELA Troncoso spoke with Dr. Heart who is also agreeable to admission. All pics printed for the chart, med rec, dressing change instructions, and physician orders from wound care all sent in packet with patient to give to RN on the floor. Redressed wounds with Betadien soaked gauze, ABD pads, and kerlix. Change daily. Patient's mother informed of admission. Patient admitted to room 569. Wound care spoke with MUSTAPHA Burnett whom admitting patient and gave her wound care report and patient history. Wound care will check chart tomorrow and then will follow up on Saturday08/14/21.
[2021-08-10] MEDS ORDERED: ONDANSETRON ODT 4 MG TAB.RAPDIS. PO PRN ×2 (16:45→17:30)
[2021-08-10] MEDS ORDERED: ONDA4TAB7 PO (16:47)
[2021-08-10] MEDS: HEPARIN for SUB-Q USE 5,000 UNIT/ML VIAL. SQ SCH ×2 (17:06→21:00)
--- NOTE | 2021-08-10 18:09 | NUR ---
Pt arrived on unit by ambulation from [facility] at 1620. Pt's mother, Anastacia with pt at time of admission. POC/orders reviewed. Wound photos taken by RN's at the clinic. Pt's questions/concerns addressed. Will assume care of this pt.
[2021-08-10] MEDS: IBUPROFEN 200 MG TABLET. PO PRN ×2 (18:37→22:49)
--- NOTE | 2021-08-10 18:39 | PDOC1 ---
History and Physical Date of Service: DOS: DATE: 08/10/21 TIME: 18:12 Chief Complaint: Problems: (1) Non-pressure chronic ulcer of left calf with fat layer exposed (2) Non-pressure chronic ulcer of right calf with fat layer exposed Chief Complain: Nonhealing wounds History of Present Illness: HPI: Patient is a 41-year-old white male sent from the wound care clinic today due to chronic lower extremity wounds. Patient has been seen at the wound clinic since approximately 2018 he says. He reports that his wounds initially began in 2010 on his ankles. Over time they continually worsened however patient did not present here until 2018. He is somewhat unclear on any other treatment he may have sought [id number]. He says he has undergone a few procedures in Dr. Trevino's office in 2018 related to his leg veins? Ever since those procedures he has been followed in our wound clinic with the wounds only worsening. He is uncertain to tell me a potential cause why his wounds may not be healing. Since 2018 he reports having been on at least 6-9 rounds of antibiotics. He cannot provide me any specifics about the names of them but says they were all oral. Never has had a PICC line placed for long-term IV antibiotics. Says he recently finished a course of Bactrim and is finishing doxycycline currently. I Believe these were prescribed from the wound care clinic. Per verbal from wound care nurses today he apparently has had an infection with an ESBL before. When evaluated at bedside patient really did not have any complaints overall. Past Medical/Surgical History: PMH/PSH: Chronic ulcers of bilateral calves Allergies: Allergies: Coded Allergies: venom-wasp (Verified Allergy, Severe, 12/05/17) I S O L A T I O N *CONTACT* (Verified Allergy, Unknown, 03/08/20) ESBL clindamycin (Verified Allergy, Unknown, 08/10/21) Family History: Family History: Noncontributory Social History: Social History: Denies alcohol tobacco drug use Current Medications: Current Medications Current Medications Ondansetron HCl (Zofran) 4 mg PRN Q6HRS PRN IVP NAUSEA/VOMITING; Start 08/10/21 at 16:00 Calcium Carbonate/ Glycine (Tums) 500 mg PRN Q3HRS PRN PO UPSET STOMACH; Start 08/10/21 at 16:00 Zolpidem Tartrate (Ambien) 5 mg PRN QHS PRN PO INSOMNIA, MAY REPEAT IN 1HR; Start 08/10/21 at 16:00 Info (Non-Icu Electrolyte Protocol) 1 ea PRN DAILY PRN MC SEE COMMENTS; Start 08/10/21 at 16:00 Oxycodone HCl (Roxicodone) 5 mg PRN Q3HRS PRN PO BREAKTHROUGH PAIN; Start 08/10/21 at 16:00 Morphine Sulfate (Morphine Sulfate) 1 mg PRN Q1HR PRN IV PAIN-SEE COMMENTS; Start 08/10/21 at 16:00 Morphine Sulfate (Morphine Sulfate) 2 mg PRN Q1HR PRN IV PAIN; Start 08/10/21 at 16:00 Oxycodone/ Acetaminophen (Percocet 5/325) 1 tab PRN Q4HRS PRN PO MILD PAIN, 1ST CHOICE; Start 08/10/21 at 16:00 Oxycodone/ Acetaminophen (Percocet 5/325) 2 tab PRN Q4HRS PRN PO MODERATE PAIN, SEVERE PAIN; Start 08/10/21 at 16:00 Acetaminophen (Tylenol) 650 mg PRN Q6HRS PRN PO Headaches, Temp > 101.5F; Start 08/10/21 at 16:00 Senna/Docusate Sodium (Senna Plus) 1 tab BID PO ; Start 08/10/21 at 21:00 Heparin Sodium (Porcine) (Heparin Sodium) 5,000 unit Q8HRS SQ Last administered on 08/10/21at 17:06; Start 08/10/21 at 16:00 Ibuprofen (Motrin) 400 mg PRN Q4HRS PRN PO INFLAMMATION-MOD TO SEVERE; Start 08/10/21 at 16:45 Ondansetron HCl (Zofran Odt) 4 mg PRN Q6HRS PRN PO NAUSEA/VOMITING; Start 08/10/21 at 16:45 Ibuprofen (Motrin) 200 mg PRN Q4HRS PRN PO INFLAMMATION -MILD; Start 08/10/21 at 17:30 Ondansetron HCl (Zofran Odt) 4 mg PRN Q6HRS PRN PO NAUSEA/VOMITING; Start 08/10/21 at 17:30 Active Scripts Active Doxycycline Hyclate 100 Mg Tablet.dr 1 Tab PO BID Multivitamins (Multivitamin) 1 Each Tablet 1 Tab PO DAILY Reported Zofran (Ondansetron Hcl) 4 Mg Tablet 1 Tab PO PRN Q4-6HRS PRN Aspirin 325 Mg Tablet 650 Mg PO TID PRN ROS: Review of Systems Review of System Negative unless in HPI Physical Exam: Vital Signs: Vital Signs Date Time Temp Pulse Resp B/P (MAP) Pulse Ox O2 Delivery O2 Flow Rate FiO2 08/10/21 17:50 Room Air Physcial Exam: GEN: No apparent distress. Alert and oriented HEENT: Normal cephalic, atraumatic, external auditory canals are patent EYES: Extraocular muscles are intact MUSCULOSKELETAL: Well developed , well nourished, good range of motionng NECK: Supple, no JVD, no thyromegaly was noted LUNGS: Clear to auscultation in all lung harry without rhonchi or wheezing HEART: RRR, S1, S2 present. Peripheral pulses intact, no obvious murmurs noted ABDOMEN: Soft, nontender. Positive bowel sounds, no organomegaly, normal bowel sounds EXTREMITIES: Bilateral lower extremities wrapped, I did not remove these as pictures from today's wound care appointment were available NEUROLOGIC: Normal speech and tone. A&O x 3, moves all extremities, no obvious focal deficits PSYCHIATRIC: Normal affect, normal mood. Stable SKIN: No ulcerations or rashes, good skin turgor, no jaundice VASCULAR: Good capillary refill, neurovascular bundle appears to be intact Labs: Labs: Labs reviewed Assessment/Plan Assessment/Plan Chronic nonpressure ulcers of bilateral calves -Admit to hospital -Patient has worsening chronic wounds in his lower extremities since 2010 -Has had multiple rounds of antibiotics over the past 3 years, upwards of 10 rounds. These were all oral he has never done IV antibiotics. -Given multiple rounds of antibiotics concerned for resistance patterns especially given history of ESBL. Will start patient on vancomycin and Zosyn for broad coverage including MRSA. -Infectious disease consulted -Uncertain of exactly what these venous procedures were -Vascular surgery consulted -N.p.o. at midnight -Family were bedside updated on plan of care Justifications for Admission Other Justification JOSE HAIRSTON MD Aug 10, 2021 18:38
[2021-08-10] MEDS ORDERED: PIP/TAZO PER PHARMACY MC PRN (18:45)
[2021-08-10 19:00] VITALS: BP 131/69
[2021-08-10] MEDS: PIPERACILLIN/TAZOBACTAM 3.375 GM in IV NORMAL SALINE 50ML 50 ML IV SCH (19:00)
[2021-08-10 20:00] VITALS: BP 197/95
[2021-08-10] MEDS ORDERED: VANCOMYCIN 2 GM in IV NORMAL SALINE 500ML BAG 500 ML IV ONE (20:00)
[2021-08-10] MEDS: SENNOSIDES/DOCUSATE 8.6/50MG TABLET. PO SCH (21:00)
[2021-08-10 22:53] LABS: BASO # 0.1 x10^3/uL (0.0-0.2); BASO % 1 % (0-3); EOS # 0.3 x10^3/uL (0.0-0.7); EOS % 5 % (0-3); HEMOGLOBIN 11.9 g/dL (13.0-17.5); LYMPH % 14 % (24-48); MEAN CORPUSCULAR HEMOGLOBIN 29 pg (25-35); MEAN CORPUSCULAR HGB CONC 34 g/dL (31-37); MEAN CORPUSCULAR VOLUME 85 fL (79-100); MONO # 0.5 x10^3/uL (0.0-1.1); MONO % 8 % (0-9); NEUT # 4.9 x10^3/uL (1.8-7.7); NEUT % 72 % (31-73); PLATELET COUNT 275 x10^3/uL (140-400); RED BLOOD COUNT 4.13 x10^6/uL (4.30-5.70); RED CELL DISTRIBUTION WIDTH 13.1 % (11.5-14.5); WHITE BLOOD COUNT 6.9 x10^3/uL (4.0-11.0)
[2021-08-10 23:00] VITALS: BP 119/81
[2021-08-10 23:24] LABS: ALBUMIN 2.9 g/dL (3.4-5.0); ALBUMIN/GLOBULIN RATIO 0.7 (1.0-1.7); CALCIUM 8.7 mg/dL (8.5-10.1); CREATININE 1.2 mg/dL (0.7-1.3); GFR 66.1; POTASSIUM 3.5 mmol/L (3.5-5.1); TOTAL BILIRUBIN 0.5 mg/dL (0.2-1.0); TOTAL PROTEIN 6.9 g/dL (6.4-8.2)
[2021-08-11] MEDS: PIPERACILLIN/TAZOBACTAM 3.375 GM in IV NORMAL SALINE 50ML 50 ML IV SCH ×5 (00:39→23:51)
[2021-08-11] MEDS: oxyCODONE/APAP 5/325 1 TAB TABLET PO PRN ×3 (01:12→23:51)
[2021-08-11] MEDS: VANCOMYCIN PER PHARMACY MC PRN ×2 (02:01→15:53)
--- NOTE | 2021-08-11 02:01 | NUR ---
Pharmacy Vancomycin Dosing Note S:Consulted to monitor and dose vancomycin started 08/10/21. O:NADYA ROBLERO is a 41 year old M with Cellulitis . Height: 5 feet, 10 inches Weight: 77.3 kg [place] Body Weight: 73.00 Adjusted Body Weight: 74.72 Dosing Weight: Actual Other Antibiotics: ZOSYN 3.375 GM Q6H LABS: Last BUN: 12 Last Creatinine: 1.2 Creatinine Clearance: 84 mL/min Last WBC: 6.9 Last Procalcitonin: Tmax (past 24 hours): Microbiology: I/O: Drug Levels: Last level: on at Last dose given 08/10/21 at 2000 Vancomycin Dosing: Loading Dose: 2000 mg x1 Dosing Weight: Actual Target Trough: 10-20 A: Based on: WT AND CRCL P: 1. Begin Vancomycin 1250 mg IV q12h 2. Follow up Trough level on 08/12/21 at 0730 3. Pharmacy will continue to monitor, follow and adjust therapy as needed. MAGDALENO DUBOSE RPH, 08/11/21200 Signed: 08/11/21 at 020 by MAGDALENO DUBOSE RPH PHA
[2021-08-11] MEDS: HEPARIN for SUB-Q USE 5,000 UNIT/ML VIAL. SQ SCH ×3 (05:44→21:19)
[2021-08-11] MEDS: IBUPROFEN 200 MG TABLET. PO PRN ×2 (06:03→10:28)
[2021-08-11 07:00] VITALS: BP 120/82
[2021-08-11] MEDS: ONDANSETRON PF 4 MG/2 ML VIAL. IVP PRN ×2 (07:37→20:05)
[2021-08-11] MEDS: SENNOSIDES/DOCUSATE 8.6/50MG TABLET. PO SCH ×2 (08:00→19:52)
[2021-08-11] MEDS: VANCOMYCIN 1.25 GM in IV NORMAL SALINE 250ML 250 ML IV SCH ×2 (08:01→19:53)
--- NOTE | 2021-08-11 09:58 | PDOC2 ---
CONSULT Date of Service Date of Service DATE: 08/11/21 TIME: 09:38 Reason for Consult Reason for Consult: Bilateral lower extremity ankle wounds Identification/Chief Complaint Chief Complaint Chronic wounds of the ankles sent to the hospital from wound care center Source Source: Chart review, Patient History of Present Illness Reason for Visit: Patient is a 41-year-old male who other than his admitting diagnosis/chief complaint appears to be healthy overall. He denies any history of diabetes mellitus, significant hypertension, dyslipidemia, no history of tobacco abuse, no history of coronary artery disease or other significant risk factors for PAD He has no known history of DVT. Apparently in around 2018 he started having wounds in his ankles. These have been chronic and have failed to heal despite follow-up with the wound care c enter. He has been on several rounds of antibiotics. He apparently has had some sort of venous procedure done in his legs but he is not sure exactly what was done. He does not think he has had any evaluation for central vein issues He reports no previous surgery Past Medical History Cardiovascular: No pertinent hx Pulmonary: No pertinent hx Psych: Anxiety, Other Past Surgical History Past Surgical History Patient reports none Family History Family History: Other Social History Social History He denies any history of smoking No ALCOHOL: none Drugs: None Current Problem List Problem List Chronic venous stasis appearing wounds both ankle/chaney Current Medications Current Medications Current Medications Ondansetron HCl (Zofran) 4 mg PRN Q6HRS PRN IVP NAUSEA/VOMITING Last administered on 08/11/21at 07:37; Start 08/10/21 at 16:00 Calcium Carbonate/ Glycine (Tums) 500 mg PRN Q3HRS PRN PO UPSET STOMACH; Start 08/10/21 at 16:00 Zolpidem Tartrate (Ambien) 5 mg PRN QHS PRN PO INSOMNIA, MAY REPEAT IN 1HR; Start 08/10/21 at 16:00 Info (Non-Icu Electrolyte Protocol) 1 ea PRN DAILY PRN MC SEE COMMENTS; Start 08/10/21 at 16:00 Oxycodone HCl (Roxicodone) 5 mg PRN Q3HRS PRN PO BREAKTHROUGH PAIN; Start 08/10/21 at 16:00 Morphine Sulfate (Morphine Sulfate) 1 mg PRN Q1HR PRN IV PAIN-SEE COMMENTS; Start 08/10/21 at 16:00 Morphine Sulfate (Morphine Sulfate) 2 mg PRN Q1HR PRN IV PAIN; Start 08/10/21 at 16:00 Oxycodone/ Acetaminophen (Percocet 5/325) 1 tab PRN Q4HRS PRN PO MILD PAIN, 1ST CHOICE Last administered on 08/11/21at 01:12; Start 08/10/21 at 16:00 Oxycodone/ Acetaminophen (Percocet 5/325) 2 tab PRN Q4HRS PRN PO MODERATE PAIN, SEVERE PAIN Last administered on 08/11/21at 06:07; Start 08/10/21 at 16:00 Acetaminophen (Tylenol) 650 mg PRN Q6HRS PRN PO Headaches, Temp > 101.5F; Start 08/10/21 at 16:00 Senna/Docusate Sodium (Senna Plus) 1 tab BID PO ; Start 08/10/21 at 21:00 Heparin Sodium (Porcine) (Heparin Sodium) 5,000 unit Q8HRS SQ Last administered on 08/10/21at 21:00; Start 08/10/21 at 16:00 Ibuprofen (Motrin) 400 mg PRN Q4HRS PRN PO INFLAMMATION-MOD TO SEVERE Last administered on 08/10/21at 22:49; Start 08/10/21 at 16:45 Ondansetron HCl (Zofran Odt) 4 mg PRN Q6HRS PRN PO NAUSEA/VOMITING; Start 08/10/21 at 16:45; Status Cancel Ibuprofen (Motrin) 200 mg PRN Q4HRS PRN PO INFLAMMATION -MILD Last administered on 08/10/21at 18:37; Start 08/10/21 at 17:30 Ondansetron HCl (Zofran Odt) 4 mg PRN Q6HRS PRN PO NAUSEA/VOMITING; Start 08/10/21 at 17:30 Vancomycin HCl (Vanco Per Pharmacy) 1 each PRN DAILY PRN MC SEE COMMENTS Last administered on 08/11/21at 02:01; Start 08/10/21 at 18:45 Piperacillin Sod/ Tazobactam Sod (Zosyn Per Pharmacy) 1 each PRN DAILY PRN MC SEE COMMENTS; Start 08/10/21 at 18:45 Piperacillin Sod/ Tazobactam Sod 3.375 gm/Sodium Chloride 50 ml @ 100 mls/hr Q6HRS IV Last administered on 08/11/21at 05:44; Start 08/10/21 at 19:00 Vancomycin HCl 2 gm/Sodium Chloride 500 ml @ 250 mls/hr 1X ONCE IV Last administered on 08/10/21at 20:00; Start 08/10/21 at 20:00; Stop 08/10/21 at 21:59; Status DC Vancomycin HCl 1.25 gm/Sodium Chloride 250 ml @ 167 mls/hr Q12H IV Last administered on 08/11/21at 08:01; Start 08/11/21 at 08:00 Vancomycin HCl (Vancomycin Trough Level) 1 each 1X ONCE MC ; Start 08/12/21 at 07:30; Stop 08/12/21 at 07:31 Active Scripts Active Doxycycline Hyclate 100 Mg Tablet.dr 1 Tab PO BID Multivitamins (Multivitamin) 1 Each Tablet 1 Tab PO DAILY Reported Zofran (Ondansetron Hcl) 4 Mg Tablet 1 Tab PO PRN Q4-6HRS PRN Aspirin 325 Mg Tablet 650 Mg PO TID PRN Allergies Allergies: Coded Allergies: venom-wasp (Verified Allergy, Severe, 12/05/17) clindamycin (Verified Allergy, Intermediate, 08/11/21) I S O L A T I O N *CONTACT* (Verified Allergy, Unknown, 03/08/20) ESBL Physical Exam General: Alert, Oriented X3, Cooperative HEENT: Atraumatic Lungs: Clear to auscultation Heart: Regular rate, Normal S1, Normal S2, No murmurs, Other (Palpable DP pulse 2+ left 1+ right) Abdomen: Normal bowel sounds Extremities: No clubbing, Other (Venous stasis appearing ulcers both ankles and distal chaney) Skin: Other (Skin breakdown with venous stasis appearing changes at shins and ankles with hemosiderin staining and chronic woody texture of the skin) Neuro: Normal speech, Strength at 5/5 X4 ext, Normal tone, Sensation intact, Cranial nerves 3-12 NL MUSCULOSKELETAL: No joint tenderness, No deformity Vitals VITALS Vital Signs Date Time Temp Pulse Resp B/P (MAP) Pulse Ox O2 Delivery O2 Flow Rate FiO2 08/11/21 08:00 Room Air 08/11/21 07:00 97.8 78 18 120/82 (95) 97.8 08/11/21 06:45 98 2.0 Labs Labs Laboratory Tests Test 08/10/21 22:45 White Blood Count 6.9 x10^3/uL (4.0-11.0) Red Blood Count 4.13 x10^6/uL (4.30-5.70) Hemoglobin 11.9 g/dL (13.0-17.5) Hematocrit 35.0 % (39.0-53.0) Mean Corpuscular Volume 85 fL (79-100) Mean Corpuscular Hemoglobin 29 pg (25-35) Mean Corpuscular Hemoglobin Concent 34 g/dL (31-37) Red Cell Distribution Width 13.1 % (11.5-14.5) Platelet Count 275 x10^3/uL (140-400) Neutrophils (%) (Auto) 72 % (31-73) Lymphocytes (%) (Auto) 14 % (24-48) Monocytes (%) (Auto) 8 % (0-9) Eosinophils (%) (Auto) 5 % (0-3) Basophils (%) (Auto) 1 % (0-3) Neutrophils # (Auto) 4.9 x10^3/uL (1.8-7.7) Lymphocytes # (Auto) 1.0 x10^3/uL (1.0-4.8) Monocytes # (Auto) 0.5 x10^3/uL (0.0-1.1) Eosinophils # (Auto) 0.3 x10^3/uL (0.0-0.7) Basophils # (Auto) 0.1 x10^3/uL (0.0-0.2) Erythrocyte Sedimentation Rate 40 (0-15) Sodium Level 140 mmol/L (136-145) Potassium Level 3.5 mmol/L (3.5-5.1) Chloride Level 105 mmol/L (98-107) Carbon Dioxide Level 28 mmol/L (21-32) Anion Gap 7 (6-14) Blood Urea Nitrogen 12 mg/dL (8-26) Creatinine 1.2 mg/dL (0.7-1.3) Estimated GFR (Cockcroft-Gault) 66.1 BUN/Creatinine Ratio 10 (6-20) Glucose Level 101 mg/dL (70-99) Calcium Level 8.7 mg/dL (8.5-10.1) Total Bilirubin 0.5 mg/dL (0.2-1.0) Aspartate Amino Transf (AST/SGOT) 26 U/L (15-37) Alanine Aminotransferase (ALT/SGPT) 19 U/L (16-63) Alkaline Phosphatase 78 U/L (46-116) C-Reactive Protein, Quantitative 25.0 mg/L (0-3.3) Total Protein 6.9 g/dL (6.4-8.2) Albumin 2.9 g/dL (3.4-5.0) Albumin/Globulin Ratio 0.7 (1.0-1.7) Laboratory Tests Test 08/10/21 22:45 White Blood Count 6.9 x10^3/uL (4.0-11.0) Red Blood Count 4.13 x10^6/uL (4.30-5.70) Hemoglobin 11.9 g/dL (13.0-17.5) Hematocrit 35.0 % (39.0-53.0) Mean Corpuscular Volume 85 fL (79-100) Mean Corpuscular Hemoglobin 29 pg (25-35) Mean Corpuscular Hemoglobin Concent 34 g/dL (31-37) Red Cell Distribution Width 13.1 % (11.5-14.5) Platelet Count 275 x10^3/uL (140-400) Neutrophils (%) (Auto) 72 % (31-73) Lymphocytes (%) (Auto) 14 % (24-48) Monocytes (%) (Auto) 8 % (0-9) Eosinophils (%) (Auto) 5 % (0-3) Basophils (%) (Auto) 1 % (0-3) Neutrophils # (Auto) 4.9 x10^3/uL (1.8-7.7) Lymphocytes # (Auto) 1.0 x10^3/uL (1.0-4.8) Monocytes # (Auto) 0.5 x10^3/uL (0.0-1.1) Eosinophils # (Auto) 0.3 x10^3/uL (0.0-0.7) Basophils # (Auto) 0.1 x10^3/uL (0.0-0.2) Erythrocyte Sedimentation Rate 40 (0-15) Sodium Level 140 mmol/L (136-145) Potassium Level 3.5 mmol/L (3.5-5.1) Chloride Level 105 mmol/L (98-107) Carbon Dioxide Level 28 mmol/L (21-32) Anion Gap 7 (6-14) Blood Urea Nitrogen 12 mg/dL (8-26) Creatinine 1.2 mg/dL (0.7-1.3) Estimated GFR (Cockcroft-Gault) 66.1 BUN/Creatinine Ratio 10 (6-20) Glucose Level 101 mg/dL (70-99) Calcium Level 8.7 mg/dL (8.5-10.1) Total Bilirubin 0.5 mg/dL (0.2-1.0) Aspartate Amino Transf (AST/SGOT) 26 U/L (15-37) Alanine Aminotransferase (ALT/SGPT) 19 U/L (16-63) Alkaline Phosphatase 78 U/L (46-116) C-Reactive Protein, Quantitative 25.0 mg/L (0-3.3) Total Protein 6.9 g/dL (6.4-8.2) Albumin 2.9 g/dL (3.4-5.0) Albumin/Globulin Ratio 0.7 (1.0-1.7) Images Images Lower extremity venous and arterial duplex being done while I was examining the patient Assessment/Plan Assessment/Plan Bilateral lower extremity wounds in the ankles that appear to be venous stasis Does not appear that these need to be debrided right now not sure that would benefit him. His studies are pending but on physical exam he had palpable pulse at the ankles and he has no real risk factors for atherosclerotic occlusive disease. It sounds he has had some sort of venous intervention in the past but not sure what. He should have evaluation of his abdomen pelvis to make sure there is no central venous stenosis mass etc. as he is very healthy overall other than this issue and there is not a clear explanation why should have his chronic venous stasis appearing ulcers. Once imaging is done we will have further recommendations by do not think he needs surgery right now. He should probably follow-up in our office with [facility] who specializes in vein disease. LIU BUENO MD Aug 11, 2021 09:58
--- NOTE | 2021-08-11 10:32 | RAD ---
INDICATION: Reason: CELLULITIS / Spl. Instructions: / History: . Leg swelling and redness. COMPARISON: None. TECHNIQUE: Grayscale, color and doppler ultrasound images were obtained of the bilateral lower extrem ity venous vasculature. RIGHT: No thrombus identified in the common femoral vein, femoral vein, popliteal vein or visualized calf ve ins. LEFT: No thrombus identified in the common femoral vein, femoral vein, popliteal vein or visualized calf ve ins. IMPRESSION: * No thrombus identified in deep venous system of bilateral lower extremities. Electronically signed by: Scott Grider MD (08/11/2021 10:29 AM) [id number]
[2021-08-11 11:00] VITALS: BP 133/86
--- NOTE | 2021-08-11 11:38 | NUR ---
SW following. Discussed with RN, pt from home with mother, room air, NPO. Wound care following. Pt follows at the wound clinic. No plans for surgery, just scans. RN advised no SW needs at this time. SW will continue to follow.
[2021-08-11] MEDS ORDERED: IOHEXOL 300 MG/ML 100ML VIAL. IV ONE (12:00)
--- NOTE | 2021-08-11 12:02 | PDOC ---
[facility] PROGRESS NOTE Date of Service DOS: DATE: 08/11/21 TIME: 11:59 Chief Complaint Chief Complaint Lower extremity wounds History of Present Illness History of Present Illness Patient is a 41-year-old white male sent from the wound care clinic today due to chronic lower extremity wounds. Patient has been seen at the wound clinic since approximately 2018 he says. He reports that his wounds initially began in 2010 on his ankles. Over time they continually worsened however patient did not present here until 2018. He is somewhat unclear on any other treatment he may have sought [id number]. He says he has undergone a few procedures in Dr. Monster figueroa's office in 2018 related to his leg veins? Ever since those procedures he has been followed in our wound clinic with the w ounds only worsening. He is uncertain to tell me a potential cause why his wounds may not be healing. Since 2018 he reports having been on at least 6-9 rounds of antibiotics. He cannot provide me any specifics about the names of them but says they were all oral. Never has had a PICC line placed for long-term IV antibiotics. Says he recently finished a course of Bactrim and is finishing doxycycline currently. I Believe these were prescribed from the wound care clinic. Per verbal from wound care nurses today he apparently has had an infection with an ESBL before. When evaluated at bedside patient really did not have any complaints overall. 08/11 Patient evaluated at bedside. This is no major changes overnight, wounds are as they normally are. Really complaints otherwise. Vascular surgery and infectious disease following. Continue antibiotics and vascular work-up. Vitals/I&O Vitals/I&O: Vital Signs Date Time Temp Pulse Resp B/P (MAP) Pulse Ox O2 Delivery O2 Flow Rate FiO2 08/11/21 08:00 Room Air 08/11/21 07:00 97.8 78 18 120/82 (95) 97.8 08/11/21 06:45 98 2.0 I & O 08/10/21 08/10/21 08/11/21 15:00 23:00 07:00 Intake Total 240 ml Balance 240 ml Physical Exam General: Alert, Oriented X3, Cooperative Heart: Regular rate, Normal S1, Normal S2, No murmurs, Other (Palpable DP pulse 2+ left 1+ right) Abdomen: Normal bowel sounds Extremities: Normal pulses, Other (Venous stasis appearing ulcers both ankles and distal chaney) Skin: Other (Skin breakdown with venous stasis appearing changes at shins and ankles with hemosiderin staining and chronic woody texture of the skin) Labs Labs: Laboratory Tests Test 08/10/21 22:45 White Blood Count 6.9 x10^3/uL (4.0-11.0) Red Blood Count 4.13 x10^6/uL (4.30-5.70) Hemoglobin 11.9 g/dL (13.0-17.5) Hematocrit 35.0 % (39.0-53.0) Mean Corpuscular Volume 85 fL (79-100) Mean Corpuscular Hemoglobin 29 pg (25-35) Mean Corpuscular Hemoglobin Concent 34 g/dL (31-37) Red Cell Distribution Width 13.1 % (11.5-14.5) Platelet Count 275 x10^3/uL (140-400) Neutrophils (%) (Auto) 72 % (31-73) Lymphocytes (%) (Auto) 14 % (24-48) Monocytes (%) (Auto) 8 % (0-9) Eosinophils (%) (Auto) 5 % (0-3) Basophils (%) (Auto) 1 % (0-3) Neutrophils # (Auto) 4.9 x10^3/uL (1.8-7.7) Lymphocytes # (Auto) 1.0 x10^3/uL (1.0-4.8) Monocytes # (Auto) 0.5 x10^3/uL (0.0-1.1) Eosinophils # (Auto) 0.3 x10^3/uL (0.0-0.7) Basophils # (Auto) 0.1 x10^3/uL (0.0-0.2) Erythrocyte Sedimentation Rate 40 (0-15) Sodium Level 140 mmol/L (136-145) Potassium Level 3.5 mmol/L (3.5-5.1) Chloride Level 105 mmol/L (98-107) Carbon Dioxide Level 28 mmol/L (21-32) Anion Gap 7 (6-14) Blood Urea Nitrogen 12 mg/dL (8-26) Creatinine 1.2 mg/dL (0.7-1.3) Estimated GFR (Cockcroft-Gault) 66.1 BUN/Creatinine Ratio 10 (6-20) Glucose Level 101 mg/dL (70-99) Calcium Level 8.7 mg/dL (8.5-10.1) Total Bilirubin 0.5 mg/dL (0.2-1.0) Aspartate Amino Transf (AST/SGOT) 26 U/L (15-37) Alanine Aminotransferase (ALT/SGPT) 19 U/L (16-63) Alkaline Phosphatase 78 U/L (46-116) C-Reactive Protein, Quantitative 25.0 mg/L (0-3.3) Total Protein 6.9 g/dL (6.4-8.2) Albumin 2.9 g/dL (3.4-5.0) Albumin/Globulin Ratio 0.7 (1.0-1.7) Review of Systems Review of Systems: Negative unless noted above Assessment and Plan Assessmemt and Plan Chronic nonpressure ulcers of bilateral calves, venous stasis -Admit to hospital -Patient has worsening chronic wounds in his lower extremities since 2010 -Has had multiple rounds of antibiotics over the past 3 years, upwards of 10 rounds. These were all oral he has never done IV antibiotics. -Given multiple rounds of antibiotics concerned for resistance patterns especially given history of ESBL. Will start patient on vancomycin and Zosyn for broad coverage including MRSA. -Infectious disease consulted -Uncertain of exactly what these venous procedures were -Vascular surgery consulted --> imaging still ongoing, recommend evaluating central veins with CT abdomen pelvis, unlikely to need surgical intervention -Family were bedside updated on plan of care Comment Review of Relevant I have reviewed the following items raffy (where applicable) has been applied. Medications: Current Medications Medications (Trade) Dose Ordered Sig/Jania Route PRN Reason Start Time Stop Time Status Last Admin Dose Admin Ondansetron HCl (Zofran) 4 mg PRN Q6HRS PRN IVP NAUSEA/VOMITING 08/10/21 16:00 08/11/21 07:37 Oxycodone/ Acetaminophen (Percocet 5/325) 1 tab PRN Q4HRS PRN PO MILD PAIN, 1ST CHOICE 08/10/21 16:00 08/11/21 01:12 Oxycodone/ Acetaminophen (Percocet 5/325) 2 tab PRN Q4HRS PRN PO MODERATE PAIN, SEVERE PAIN 08/10/21 16:00 08/11/21 06:07 Heparin Sodium (Porcine) (Heparin Sodium) 5,000 unit Q8HRS SQ 08/10/21 16:00 08/10/21 21:00 Ibuprofen (Motrin) 400 mg PRN Q4HRS PRN PO INFLAMMATION-MOD TO SEVERE 08/10/21 16:45 08/11/21 10:28 Ibuprofen (Motrin) 200 mg PRN Q4HRS PRN PO INFLAMMATION -MILD 08/10/21 17:30 08/10/21 18:37 Vancomycin HCl (Vanco Per Pharmacy) 1 each PRN DAILY PRN MC SEE COMMENTS 08/10/21 18:45 08/11/21 02:01 Piperacillin Sod/ Tazobactam Sod 3.375 gm/Sodium Chloride 50 ml @ 100 mls/hr Q6HRS IV 08/10/21 19:00 08/11/21 05:44 Vancomycin HCl 2 gm/Sodium Chloride 500 ml @ 250 mls/hr 1X ONCE IV 08/10/21 20:00 08/10/21 21:59 DC 08/10/21 20:00 Vancomycin HCl 1.25 gm/Sodium Chloride 250 ml @ 167 mls/hr Q12H IV 08/11/21 08:00 08/11/21 08:01 Justifications for Admission Other Justification JOSE HAIRSTON MD Aug 11, 2021 12:02
[2021-08-11] MEDS ORDERED: PROCHLORPERAZINE 10 MG/2 ML VIAL. IM PRN (12:30)
[2021-08-11] MEDS ORDERED: PROCHLORPERAZINE 10 MG/2 ML VIAL. IV PRN (12:45)
--- NOTE | 2021-08-11 14:54 | RAD ---
Exam: US DPLX ARTR EXTREM LOWER BILAT History: Reason: PAD / Spl. Instructions: / History: Comparison: None. Technique: Grayscale, color, and spectral Doppler ultrasound images of the lower extremity arteries. Findings: There is monophasic waveforms in the right dorsalis pedis artery. The rest of the right lower extremi ty arteries have normal triphasic waveforms and peak systolic velocities. There is no focal stenosis on the right. There are monophasic waveforms in the left posterior tibial artery, peroneal artery, anterior tibial artery, and dorsalis pedis artery. The left common femoral artery through popliteal artery have nixon l triphasic waveforms and peak systolic velocities. There is no focal stenosis on the left. Impression: Peripheral arterial disease below the knee on the left and in the dorsalis pedis artery on the right. No focal stenosis. Electronically signed by: Mary Kate Kincaid MD (08/11/2021 2:51 PM) [id number]
[2021-08-11 15:00] VITALS: BP 132/94
--- NOTE | 2021-08-11 15:27 | RAD ---
Exam: CT abdomen/pelvis with intravenous contrast Indication: Evaluate for DVT or venous compression Comparison: None Technique: Helical CT imaging performed of the abdomen and pelvis after the intravenous administratio n of 75 mL Omnipaque 300 contrast. Sagittal and coronal reformats were obtained. One or more of the following individualized dose reduction techniques were utilized for this examinat ion: 1. Automated exposure control 2. Adjustment of the mA and/or kV according to patient size 3. Use of iterative reconstruction technique. Findings: Lower chest: Lung bases are clear. The heart is normal in size. Liver: The liver is normal in size. No focal lesion. Gallbladder/Biliary Tree: Normal. Pancreas: Normal. Spleen: Normal. Adrenal Glands: Normal. Kidneys/Ureters/Bladder: Kidneys are normal in size and enhance symmetrically. No hydronephrosis. Ure ters are nondilated. Urinary bladder is unremarkable. Reproductive Organs: The prostate gland and seminal vesicles are prominent. Stomach, small bowel, and colon: The stomach is unremarkable. There is no small bowel obstruction. Th e colon is unremarkable. Appendix is normal. Vasculature: The phase of contrast is suboptimal to evaluate patency of arteries or veins. No aortic aneurysm. There is no compression of the iliac veins or inferior vena cava. Lymph Nodes: There is no mesenteric or retroperitoneal lymphadenopathy. There is bilateral inguinal l ymphadenopathy. For example, there is a left inguinal lymph node measuring 1.5 x 1.3 cm. Peritoneum and retroperitoneum: No free fluid or free air. Bones: There are bilateral L5 pars defects with grade 1 spondylolisthesis at L5-S1. Miscellaneous: Small fat-containing left inguinal hernia. IMPRESSION: 1. Phase of contrast is suboptimal to evaluate patency of arteries and veins, however there is no ev idence of extrinsic compression of the IVC or iliac arteries. 2. Mild bilateral inguinal lymphadenopathy. 3. Bilateral L5 pars defects and grade 1 spondylolisthesis at L5-S1. 4. Small fat-containing left inguinal hernia. Electronically signed by: Mary Kate Kincaid MD (08/11/2021 3:25 PM) [id number]
--- NOTE | 2021-08-11 17:15 | CONS ---
DATE OF CONSULTATION: 08/11/2021 REQUESTING PHYSICIAN: Alok Heart MD. REASON FOR CONSULTATION: Bilateral lower extremity ulcers and cellulitis. HISTORY OF PRESENT ILLNESS: This is a 41-year-old gentleman with a history of venous insufficiency ulceration. The patient has these ulcers in the leg for years and has been going to the wound care center for years. Lately, they have gotten worse, hence was recommended for admission by wound care. The patient has had also radiofrequency ablation of the skin specialist veins done by Dr. Trevino, last year. The patient denies any fever, denies any nausea, vomiting, diarrhea, chest pain, shortness of breath, abdominal pain, urinary symptoms or bowel symptoms. PAST MEDICAL HISTORY: Positive for seizure disorder, obsessive-compulsive disorder, chronic venous insufficiency with ulcerations. He also has a history of possible seizure disorder and also history of ESBL. SOCIAL HISTORY: Negative for smoking, occasional alcohol use, no drug use. CURRENT MEDICATIONS: The patient is on vancomycin and Zosyn. REVIEW OF SYSTEMS: As per HPI. All other systems reviewed are negative. PHYSICAL EXAMINATION: GENERAL: Alert gentleman, not in distress. VITAL SIGNS: Stable, afebrile. HEENT: Both pupils are round and reacting. No conjunctival lesion, no lesion in the mouth. NECK: Supple, no JVP, no lymphadenopathy. LUNGS: Clear. HEART: S1, S2 regular. ABDOMEN: Soft, nontender, no organomegaly. EXTREMITIES: Bilateral lower extremity venous insufficiency ulcerations present, pretty extensive bilateral lower extremity chronic ulcers. There is minimal surrounding erythema, yellow green purulent drainage from the ulcers. Dorsalis pedis is weakly palpable. NEUROLOGIC: The patient is alert, awake, and appropriate. No focal neurologic deficit. LABORATORY DATA: White count 6.9, hemoglobin 11.9, platelets are normal. BUN and creatinine is normal. CRP is 25. Albumin is 2.9. The patient had Staphylococcus aureus and Proteus in January of last year and June of this year, the patient had Proteus, Enterococcus and Corynebacterium. IMPRESSION: 1. Venous insufficiency ulcerations bilaterally, lower extremity with a secondary infection. 2. Peripheral venous insufficiency as well as peripheral arterial insufficiency. 3. Anxiety disorder. 4. Obsessive compulsive disorder. 5. History of seizure disorder. RECOMMENDATIONS: Recommend continuing vancomycin and Zosyn for the time being, get arterial Doppler, supportive care, leg elevation. We will continue to follow. Thank you very much, Dr. Heart for giving me opportunity to participate in this patient's care. ARLETH/FATIMAH/RACHEAL DR: ARLETH/sussy TID: [id number]
[2021-08-11 19:00] VITALS: BP 141/89
[2021-08-11] MEDS: LACTOBACILLUS RHAMNOSUS GG 1 CAPSULE. PO SCH (21:19)
[2021-08-11 23:00] VITALS: BP 125/94
[2021-08-12] MEDS: IBUPROFEN 200 MG TABLET. PO PRN ×2 (00:01→05:46)
[2021-08-12] MEDS: PIPERACILLIN/TAZOBACTAM 3.375 GM in IV NORMAL SALINE 50ML 50 ML IV SCH ×4 (05:46→23:55)
[2021-08-12] MEDS: HEPARIN for SUB-Q USE 5,000 UNIT/ML VIAL. SQ SCH ×3 (05:47→19:58)
[2021-08-12] MEDS: oxyCODONE/APAP 5/325 1 TAB TABLET PO PRN ×3 (06:02→23:05)
[2021-08-12 07:00] VITALS: BP 138/93
[2021-08-12 08:07] LABS: VANC TR 10.4 mcg/mL (10.0-20.0)
[2021-08-12] MEDS: SENNOSIDES/DOCUSATE 8.6/50MG TABLET. PO SCH ×2 (09:00→19:58)
[2021-08-12] MEDS: LACTOBACILLUS RHAMNOSUS GG 1 CAPSULE. PO SCH ×3 (09:00→19:55)
[2021-08-12] MEDS: VANCOMYCIN PER PHARMACY MC PRN (09:01)
--- NOTE | 2021-08-12 09:02 | NUR ---
Pharmacy Vancomycin Dosing Note S: Consulted to monitor and dose vancomycin started 08/10/21. O: NADYA ROBLERO is a 41 year old M with Cellulitis Other Antibiotics: ZOSYN 3.375 GM Q6H LABS: Last BUN: 12 Last Creatinine: 1.2 Creatinine Clearance: 84 mL/min Last WBC: 6.9 Last Procalcitonin: Tmax (past 24 hours): 98.4 Microbiology: I/O: Drug Levels: Last Trough level: 10.4 on 08/12/21 at 0730 Last dose given 08/11/21 at 1953 Vancomycin Dosing: Dosing Weight: Actual Target Trough: 10-20 A: Based on: trough P: 1. Continue Vancomycin 1250 mg IV q12h 2. Follow up Trough level in 5-7 days if needed 3. Pharmacy will continue to monitor, follow and adjust therapy as needed. Julieth Simmons RPH, 08/12/21 0902
[2021-08-12] MEDS: VANCOMYCIN 1.25 GM in IV NORMAL SALINE 250ML 250 ML IV SCH ×2 (09:50→19:52)
[2021-08-12 11:00] VITALS: BP 130/92
--- NOTE | 2021-08-12 12:10 | PDOC ---
PROGRESS NOTES Date of Service DATE: 08/12/21 TIME: 12:08 Subjective Subjective Patient seen and examined this morning he has no new complaints He is totally nontoxic-appearing, sitting up in a chair comfortable, normal conversation with me in no distress I reviewed independently his arterial duplex studiesthis showed normal flow basically. The right dorsalis pedis is biphasic not monophasic as listed in the worksheet/report He has palpable pulses of both ankles While I specifically asked for a delayed images CT venogram the CT scan does not well define the venous phase. There are no masses no evidence of venous thrombosis but is difficult to evaluate Would not plan surgical debridement at this time Recommend he follow-up with one of my partners Dr. Brown or Dr. Bowie who specializes in veins and venous diseasehe may benefit from further repeat flex study as well as potential deep venous venogram IVUS K to discharge from our standpoint I recommend aggressive compression he does not like to do this because of discomfort. Was clear that aggressive compress ion as needed for wound healing. The feet elevated whenever possible Objective Objective Vital Signs Date Time Temp Pulse Resp B/P (MAP) Pulse Ox O2 Delivery O2 Flow Rate FiO2 08/12/21 11:00 98.2 74 18 130/92 (105) 98 98.2 08/11/21 20:00 Room Air 08/11/21 06:45 2.0 Intake and Output 08/12/21 06:59 Intake Total 240 ml Balance 240 ml Intake Oral 240 ml # Voids 2 Comment Review of Relevant I have reviewed the following items raffy (where applicable) has been applied. Labs Laboratory Tests Test 08/10/21 22:45 08/12/21 07:30 White Blood Count 6.9 x10^3/uL (4.0-11.0) Red Blood Count 4.13 x10^6/uL (4.30-5.70) Hemoglobin 11.9 g/dL (13.0-17.5) Hematocrit 35.0 % (39.0-53.0) Mean Corpuscular Volume 85 fL (79-100) Mean Corpuscular Hemoglobin 29 pg (25-35) Mean Corpuscular Hemoglobin Concent 34 g/dL (31-37) Red Cell Distribution Width 13.1 % (11.5-14.5) Platelet Count 275 x10^3/uL (140-400) Neutrophils (%) (Auto) 72 % (31-73) Lymphocytes (%) (Auto) 14 % (24-48) Monocytes (%) (Auto) 8 % (0-9) Eosinophils (%) (Auto) 5 % (0-3) Basophils (%) (Auto) 1 % (0-3) Neutrophils # (Auto) 4.9 x10^3/uL (1.8-7.7) Lymphocytes # (Auto) 1.0 x10^3/uL (1.0-4.8) Monocytes # (Auto) 0.5 x10^3/uL (0.0-1.1) Eosinophils # (Auto) 0.3 x10^3/uL (0.0-0.7) Basophils # (Auto) 0.1 x10^3/uL (0.0-0.2) Erythrocyte Sedimentation Rate 40 (0-15) Sodium Level 140 mmol/L (136-145) Potassium Level 3.5 mmol/L (3.5-5.1) Chloride Level 105 mmol/L (98-107) Carbon Dioxide Level 28 mmol/L (21-32) Anion Gap 7 (6-14) Blood Urea Nitrogen 12 mg/dL (8-26) Creatinine 1.2 mg/dL (0.7-1.3) Estimated GFR (Cockcroft-Gault) 66.1 BUN/Creatinine Ratio 10 (6-20) Glucose Level 101 mg/dL (70-99) Calcium Level 8.7 mg/dL (8.5-10.1) Total Bilirubin 0.5 mg/dL (0.2-1.0) Aspartate Amino Transf (AST/SGOT) 26 U/L (15-37) Alanine Aminotransferase (ALT/SGPT) 19 U/L (16-63) Alkaline Phosphatase 78 U/L (46-116) C-Reactive Protein, Quantitative 25.0 mg/L (0-3.3) Total Protein 6.9 g/dL (6.4-8.2) Albumin 2.9 g/dL (3.4-5.0) Albumin/Globulin Ratio 0.7 (1.0-1.7) Vancomycin Level Trough 10.4 mcg/mL (10.0-20.0) Vancomycin Last Dose Date 08/11/21 Vancomycin Last Dose Time 1999 Laboratory Tests Test 08/12/21 07:30 Vancomycin Level Trough 10.4 mcg/mL (10.0-20.0) Vancomycin Last Dose Date 08/11/21 Vancomycin Last Dose Time 2000 Microbiology 08/10/21 Blood Culture - Preliminary, Resulted NO GROWTH AFTER 1 DAY Medications Current Medications Ondansetron HCl (Zofran) 4 mg PRN Q6HRS PRN IVP NAUSEA/VOMITING, 1st IV CHOICE Last administered on 08/11/21at 20:05; Start 08/10/21 at 16:00 Calcium Carbonate/ Glycine (Tums) 500 mg PRN Q3HRS PRN PO UPSET STOMACH; Start 08/10/21 at 16:00 Zolpidem Tartrate (Ambien) 5 mg PRN QHS PRN PO INSOMNIA, MAY REPEAT IN 1HR; Start 08/10/21 at 16:00 Info (Non-Icu Electrolyte Protocol) 1 ea PRN DAILY PRN MC SEE COMMENTS; Start 08/10/21 at 16:00 Oxycodone HCl (Roxicodone) 5 mg PRN Q3HRS PRN PO BREAKTHROUGH PAIN; Start 08/10/21 at 16:00 Morphine Sulfate (Morphine Sulfate) 1 mg PRN Q1HR PRN IV PAIN-SEE COMMENTS; Start 08/10/21 at 16:00 Morphine Sulfate (Morphine Sulfate) 2 mg PRN Q1HR PRN IV PAIN; Start 08/10/21 at 16:00 Oxycodone/ Acetaminophen (Percocet 5/325) 1 tab PRN Q4HRS PRN PO MILD PAIN, 1ST CHOICE Last administered on 08/12/21at 06:02; Start 08/10/21 at 16:00 Oxycodone/ Acetaminophen (Percocet 5/325) 2 tab PRN Q4HRS PRN PO MODERATE PAIN, SEVERE PAIN Last administered on 08/11/21at 06:07; Start 08/10/21 at 16:00 Acetaminophen (Tylenol) 650 mg PRN Q6HRS PRN PO Headaches, Temp > 101.5F; Start 08/10/21 at 16:00 Senna/Docusate Sodium (Senna Plus) 1 tab BID PO ; Start 08/10/21 at 21:00 Heparin Sodium (Porcine) (Heparin Sodium) 5,000 unit Q8HRS SQ Last administered on 08/11/21at 14:53; Start 08/10/21 at 16:00 Ibuprofen (Motrin) 400 mg PRN Q4HRS PRN PO INFLAMMATION-MOD TO SEVERE Last adm inistered on 08/11/21at 10:28; Start 08/10/21 at 16:45; Stop 08/11/21 at 12:01; Status DC Ondansetron HCl (Zofran Odt) 4 mg PRN Q6HRS PRN PO NAUSEA/VOMITING; Start 08/10/21 at 16:45; Status Cancel Ibuprofen (Motrin) 200 mg PRN Q4HRS PRN PO INFLAMMATION -MILD Last administered on 08/12/21at 00:01; Start 08/10/21 at 17:30 Ondansetron HCl (Zofran Odt) 4 mg PRN Q6HRS PRN PO NAUSEA/VOMITING; Start 08/10/21 at 17:30 Vancomycin HCl (Vanco Per Pharmacy) 1 each PRN DAILY PRN MC SEE COMMENTS Last administered on 08/12/21at 09:01; Start 08/10/21 at 18:45 Piperacillin Sod/ Tazobactam Sod (Zosyn Per Pharmacy) 1 each PRN DAILY PRN MC SEE COMMENTS; Start 08/10/21 at 18:45 Piperacillin Sod/ Tazobactam Sod 3.375 gm/Sodium Chloride 50 ml @ 100 mls/hr Q6HRS IV Last administered on 08/12/21at 05:46; Start 08/10/21 at 19:00 Vancomycin HCl 2 gm/Sodium Chloride 500 ml @ 250 mls/hr 1X ONCE IV Last administered on 08/10/21at 20:00; Start 08/10/21 at 20:00; Stop 08/10/21 at 21:59; Status DC Vancomycin HCl 1.25 gm/Sodium Chloride 250 ml @ 167 mls/hr Q12H IV Last administered on 08/12/21at 09:50; Start 08/11/21 at 08:00 Vancomycin HCl (Vancomycin Trough Level) 1 each 1X ONCE MC Last administered on 08/12/21at 07:30; Start 08/12/21 at 07:30; Stop 08/12/21 at 07:31; Status DC Iohexol (Omnipaque 300 Mg/ml) 75 ml 1X ONCE IV Last administered on 08/11/21at 12:23; Start 08/11/21 at 12:00; Stop 08/11/21 at 12:01; Status DC Prochlorperazine Edisylate (Compazine) 10 mg PRN Q6HRS PRN IM NAUSEA/VOMITING; Start 08/11/21 at 12:30; Status Cancel Prochlorperazine Edisylate (Compazine) 10 mg PRN Q6HRS PRN IV NAUSEA/VOMITING, 2nd CHOICE Last administered on 08/11/21at 12:35; Start 08/11/21 at 12:45 Lactobacillus Rhamnosus (Culturelle) 1 cap BID PO Last administered on 08/11/21at 21:19; Start 08/11/21 at 21:00 Active Scripts Active Doxycycline Hyclate 100 Mg Tablet.dr 1 Tab PO BID Multivitamins (Multivitamin) 1 Each Tablet 1 Tab PO DAILY Reported Zofran (Ondansetron Hcl) 4 Mg Tablet 1 Tab PO PRN Q4-6HRS PRN Aspirin 325 Mg Tablet 650 Mg PO TID PRN Vitals/I & O Vital Sign - Last 24 Hours 08/11/21 08/11/21 08/11/21 08/11/21 15:00 19:00 20:00 23:00 Temp 97.7 97.6 97.5 97.7 97.6 97.5 Pulse 75 75 73 Resp 18 18 18 B/P (MAP) 132/94 (107) 141/89 (106) 125/94 (104) Pulse Ox 99 99 97 O2 Delivery Room Air Room Air Room Air 08/12/21 08/12/21 07:00 11:00 Temp 98.4 98.2 98.4 98.2 Pulse 77 74 Resp 18 18 B/P (MAP) 138/93 (108) 130/92 (105) Pulse Ox 96 98 Intake and Output 08/11/21 08/11/21 08/12/21 14:59 22:59 06:59 Intake Total 0 ml 240 ml Balance 0 ml 240 ml Justifications for Admission Other Justification LIU BUENO MD Aug 12, 2021 12:10
--- NOTE | 2021-08-12 14:45 | PDOC ---
Infectious Disease Note Subjective Subjective Patient without any complaints ROS ROS no n/v/d/sob Vital Sign Vital Signs Vital Signs Date Time Temp Pulse Resp B/P (MAP) Pulse Ox O2 Delivery O2 Flow Rate FiO2 08/12/21 11:00 98.2 74 18 130/92 (105) 98 98.2 08/11/21 20:00 Room Air Physical Exam PHYSICAL EXAM GENERAL: Alert gentleman, not in distress. HEENT: Both pupils are round and reacting. No conjunctival lesion, no lesion in the mouth. NECK: Supple, no JVP, no lymphadenopathy. LUNGS: Clear. HEART: S1, S2 regular. ABDOMEN: Soft, nontender, no organomegaly. EXTREMITIES: Bilateral lower extremity venous insufficiency ulcerations present, pretty extensive bilateral lower extremity chronic ulcers. There is minimal surrounding erythema, yellow green purulent drainage from the ulcers. Dorsalis pedis is weakly palpable. NEUROLOGIC: The patient is alert, awake, and appropriate. No focal neurologic deficit. Labs Lab Laboratory Tests Test 08/12/21 07:30 Vancomycin Level Trough 10.4 mcg/mL (10.0-20.0) Vancomycin Last Dose Date 08/11/21 Vancomycin Last Dose Time 1999 Micro Microbiology 08/10/21 Blood Culture - Preliminary, Resulted NO GROWTH AFTER 1 DAY Objective Assessment 1. Venous insufficiency ulcerations bilaterally, lower extremity with a secondary infection. 2. Peripheral venous insufficiency as well as peripheral arterial insufficiency. 3. Anxiety disorder. 4. Obsessive compulsive disorder. 5. History of seizure disorder. Plan Plan of Care continuing vancomycin and Zosyn for the time being, Vascular following supportive care, Continue leg elevation. JAME TREJO MD Aug 12, 2021 14:45
[2021-08-12 15:00] VITALS: BP 131/88
[2021-08-12 19:51] VITALS: BP 130/95
[2021-08-12 23:20] VITALS: BP 137/96
[2021-08-13] MEDS: HEPARIN for SUB-Q USE 5,000 UNIT/ML VIAL. SQ SCH ×2 (05:47→14:00)
[2021-08-13] MEDS: oxyCODONE/APAP 5/325 1 TAB TABLET PO PRN ×2 (05:54→15:14)
[2021-08-13] MEDS: PIPERACILLIN/TAZOBACTAM 3.375 GM in IV NORMAL SALINE 50ML 50 ML IV SCH ×2 (05:55→12:51)
[2021-08-13 07:00] VITALS: BP 144/95
[2021-08-13 07:20] LABS: CALCIUM 9.2 mg/dL (8.5-10.1); CREATININE 1.2 mg/dL (0.7-1.3); GFR 66.1; POTASSIUM 3.6 mmol/L (3.5-5.1)
[2021-08-13] MEDS: LACTOBACILLUS RHAMNOSUS GG 1 CAPSULE. PO SCH (09:00)
[2021-08-13] MEDS: VANCOMYCIN 1.25 GM in IV NORMAL SALINE 250ML 250 ML IV SCH (09:00)
[2021-08-13] MEDS: SENNOSIDES/DOCUSATE 8.6/50MG TABLET. PO SCH (09:00)
--- NOTE | 2021-08-13 09:03 | PDOC ---
[facility] PROGRESS NOTE Date of Service DOS: DATE: 08/12/21 TIME: 09:02 Late entry for August 12 Chief Complaint Chief Complaint Lower extremity wounds History of Present Illness History of Present Illness Patient is a 41-year-old white male sent from the wound care clinic today due to chronic lower extremity wounds. Patient has been seen at the wound clinic since approximately 2017 he says. He reports that his wounds initially began in 2010 on his ankles. Over time they continually worsened however patient did not present here until 2018. He is somewhat unclear on any other treatment he may have sought [id number]. He says he has undergone a few procedures in Dr. Trevino's office in 2018 related to his leg veins? Ever since those procedures he has been followed in our wound clinic with the wounds only worsening. He is uncertain to tell me a potential cause why his wounds may not be healing. Since 2018 he reports having been on at least 6-9 rounds of antibiotics. He cannot provide me any specifics about the names of them but says they were all oral. Never has had a PICC line placed for long-term IV antibiotics. Says he recently finished a course of Bactrim and is finishing doxycycline currently. I Believe these were prescribed from the wound care clinic. Per verbal from wound care nurses today he apparently has had an infection with an ESBL before. When evaluated at bedside patient really did not have any complaints overall. 08/11 Patient evaluated at bedside. This is no major changes overnight, wounds are as they normally are. Really complaints otherwise. Vascular surgery and infectious disease following. Continue antibiotics and vascular work-up 08/12 Patient evaluated at bedside. He was inquiring about discharge and informed him that we likely are several days away from this. ID and vascular still following. Continue antibiotics. Vitals/I&O Vitals/I&O: Vital Signs Date Time Temp Pulse Resp B/P (MAP) Pulse Ox O2 Delivery O2 Flow Rate FiO2 08/13/21 07:00 98.0 70 18 144/95 (111) 100 Room Air 98.0 08/12/21 08:00 2.0 I & O 08/12/21 08/12/21 08/13/21 15:00 23:00 07:00 Intake Total 240 ml Balance 240 ml Physical Exam Physical Exam: GENERAL: Alert gentleman, not in distress. HEENT: Both pupils are round and reacting. No conjunctival lesion, no lesion in the mouth. NECK: Supple, no JVP, no lymphadenopathy. LUNGS: Clear. HEART: S1, S2 regular. ABDOMEN: Soft, nontender, no organomegaly. EXTREMITIES: Bilateral lower extremity venous insufficiency ulcerations present, pretty extensive bilateral lower extremity chronic ulcers. There is minimal surrounding erythema, yellow green purulent drainage from the ulcers. Dorsalis pedis is weakly palpable. NEUROLOGIC: The patient is alert, awake, and appropriate. No focal neurologic deficit. General: Alert, Oriented X3, Cooperative Heart: Regular rate, Normal S1, Normal S2, No murmurs, Other (Palpable DP pulse 2+ left 1+ right) Abdomen: Normal bowel sounds Extremities: Normal pulses, Other (Venous stasis appearing ulcers both ankles and distal chaney) Skin: Other (Skin breakdown with venous stasis appearing changes at shins and ankles with hemosiderin staining and chronic woody texture of the skin) Labs Labs: Laboratory Tests Test 08/13/21 06:30 Sodium Level 142 mmol/L (136-145) Potassium Level 3.6 mmol/L (3.5-5.1) Chloride Level 105 mmol/L (98-107) Carbon Dioxide Level 30 mmol/L (21-32) Anion Gap 7 (6-14) Blood Urea Nitrogen 8 mg/dL (8-26) Creatinine 1.2 mg/dL (0.7-1.3) Estimated GFR (Cockcroft-Gault) 66.1 Glucose Level 89 mg/dL (70-99) Calcium Level 9.2 mg/dL (8.5-10.1) Assessment and Plan Assessmemt and Plan Assessmemt and Plan Chronic nonpressure ulcers of bilateral calves, venous stasis -Admit to hospital -Patient has worsening chronic wounds in his lower extremities since 2010 -Has had multiple rounds of antibiotics over the past 3 years, upwards of 10 rounds. These were all oral he has never done IV antibiotics. -Given multiple rounds of antibiotics concerned for resistance patterns especially given history of ESBL. Will start patient on vancomycin and Zosyn for broad coverage including MRSA. -Infectious disease consulted -Uncertain of exactly what these venous procedures were -Vascular surgery consulted --> imaging still ongoing, recommend evaluating central veins with CT abdomen pelvis, unlikely to need surgical intervention -Family were bedside updated on plan of care Comment Review of Relevant I have reviewed the following items raffy (where applicable) has been applied. Justifications for Admission Other Justification JOSE HAIRSTON MD Aug 13, 2021 09:03
--- NOTE | 2021-08-13 10:48 | PDOC ---
Infectious Disease Note Subjective Subjective Patient without any complaints Is ready to go home to take care of mother DAVID HERNANDEZ Nausea vomiting diarrhea chest pain shortness of breath Vital Sign Vital Signs Vital Signs Date Time Temp Pulse Resp B/P (MAP) Pulse Ox O2 Delivery O2 Flow Rate FiO2 08/13/21 07:00 98.0 70 18 144/95 (111) 100 Room Air 98.0 08/12/21 08:00 2.0 Physical Exam PHYSICAL EXAM GENERAL: Alert gentleman, not in distress. HEENT: Both pupils are round and reacting. No conjunctival lesion, no lesion in the mouth. NECK: Supple, no JVP, no lymphadenopathy. LUNGS: Clear. HEART: S1, S2 regular. ABDOMEN: Soft, nontender, no organomegaly. EXTREMITIES: Bilateral lower extremity venous insufficiency ulcerations present, pretty extensive bilateral lower extremity chronic ulcers. There is minimal surrounding erythema, yellow green purulent drainage from the ulcers. Dorsalis pedis is weakly palpable. NEUROLOGIC: The patient is alert, awake, and appropriate. No focal neurologic deficit. Labs Lab Laboratory Tests Test 08/13/21 06:30 Sodium Level 142 mmol/L (136-145) Potassium Level 3.6 mmol/L (3.5-5.1) Chloride Level 105 mmol/L (98-107) Carbon Dioxide Level 30 mmol/L (21-32) Anion Gap 7 (6-14) Blood Urea Nitrogen 8 mg/dL (8-26) Creatinine 1.2 mg/dL (0.7-1.3) Estimated GFR (Cockcroft-Gault) 66.1 Glucose Level 89 mg/dL (70-99) Calcium Level 9.2 mg/dL (8.5-10.1) Micro Microbiology 08/10/21 Blood Culture - Preliminary, Resulted NO GROWTH AFTER 1 DAY Objective Assessment 1. Venous insufficiency ulcerations bilaterally, lower extremity with a secondary infection. 2. Peripheral venous insufficiency as well as peripheral arterial insufficiency. 3. Anxiety disorder. 4. Obsessive compulsive disorder. 5. History of seizure disorder. Plan Plan of Care Okay to DC on p.o. Augmentin and follow-up with wound care Vascular following supportive care, Advised leg elevation. Though patient is not doing it JAME TREJO MD Aug 13, 2021 10:47
[2021-08-13] MEDS ORDERED: AMOX1TAB61 PO (10:52)
--- NOTE | 2021-08-13 10:53 | PDOC3 ---
[facility]-Discharge Summary Date of Admission: Date of Admission: Aug 10, 2021 Date of Discharge: Date of Discharge: Aug 13, 2021 Admission Diagnosis: Problems: (1) Non-pressure chronic ulcer of left calf with fat layer exposed (2) Non-pressure chronic ulcer of right calf with fat layer exposed Discharge Diagnosis: Discharge Diagnosis: Same Consults: Consults: Infectious disease, vascular surgery Procedures: Procedures: Multiple tests performed by vascular team Hospital Course: Hospital Course: History of Present Illness Patient is a 41-year-old white male sent from the wound care clinic today due to chronic lower extremity wounds. Patient has been seen at the wound clinic since approximately 2017 he says. He reports that his wounds initially began in 2010 on his ankles. Over time they continually worsened however patient did not present here until 2018. He is somewhat unclear on any other treatment he may have sought [id number]. He says he has undergone a few procedures in Dr. Trevino's office in 2018 related to his leg veins? Ever since those procedures he has been followed in our wound clinic with the wounds only worsening. He is uncertain to tell me a potential cause why his wounds may not be healing. Since 2018 he reports having been on at least 6-9 rounds of antibiotics. He cannot provide me any specifics about the names of them but says they were all oral. Never has had a PICC line placed for long-term IV antibiotics. Says he recently finished a course of Bactrim and is finishing doxycycline currently. I Believe these were prescribed from the wound care clinic. Per verbal from wound care nurses today he apparently has had an infection with an ESBL before. When evaluated at bedside patient really did not have any complaints overall. 08/11 Patient evaluated at bedside. This is no major changes overnight, wounds are as they normally are. Really complaints otherwise. Vascular surgery and infectious disease following. Continue antibiotics and vascular work-up 08/12 Patient evaluated at bedside. He was inquiring about discharge and informed him that we likely are several days away from this. ID and vascular still following. Continue antibiotics. 08/13 Patient evaluated bedside. Appropriate for discharge today. Switch to Augmentin for antibiotics for 10 days. ID and vascular following. Outpatient follow up Disposition: Disposition/Orders: D/C to Home Activity: Activity: Resume previous activity Diet: Diet: Regular Medications: Home Meds Active Scripts Amoxicillin/Potassium Clav (AUGMENTIN 875-125 TABLET) 1 Each Tablet, 1 TAB PO BID for lower extremity wounds for 10 Days, #20 TAB 0 Refills Prov:JOSE HAIRSTON MD 08/13/21 Multivitamin (MULTIVITAMINS) 1 Each Tablet, 1 TAB PO DAILY, #90 TAB Prov:KAY KNOTT MD 12/05/17 Reported Medications Ondansetron Hcl (ZOFRAN) 4 Mg Tablet, 1 TAB PO PRN Q4-6HRS PRN for NAUSEA/VOMITING, #20 TAB 08/10/21 Aspirin (ASPIRIN) 325 Mg Tablet, 650 MG PO TID PRN for PAIN, TAB 12/04/17 Discontinued Scripts Doxycycline Hyclate (DOXYCYCLINE HYCLATE) 100 Mg Tablet.dr, 1 TAB PO BID, #14 TAB Prov:KAY KNOTT MD 12/05/17 Scheduled Amoxicillin/Potassium Clav (Augmentin 875-125 Tablet), 1 TAB PO BID Multivitamin (Multivitamins), 1 TAB PO DAILY Scheduled PRN Aspirin (Aspirin), 650 MG PO TID PRN for PAIN, (Reported) Ondansetron Hcl (Zofran), 1 TAB PO PRN Q4-6HRS PRN for NAUSEA/VOMITING, (Reported) Discontinued Medications Doxycycline Hyclate (Doxycycline Hyclate), 1 TAB PO BID Justicifation of Admission Dx: Justifications for Admission: Justification of Admission Dx: Yes (Chronic lower extremity wounds) JOSE HAIRSTON MD Aug 13, 2021 10:53
[2021-08-13 11:00] VITALS: BP 125/92
[2021-08-13] MEDS: VANCOMYCIN PER PHARMACY MC PRN (11:48)
[2021-08-13 15:00] VITALS: BP 133/95
== END 2021-08-13 17:15 | disposition home or self-care (01) | DRG 300 ==
LOC: 5 SOUTH 15:22
PROVIDERS: ADMIT Student in an Organized Health Care Education/Training Program; ATTEND Student in an Organized Health Care Education/Training Program
DX: I87.2 Venous insufficiency (chronic) (peripheral) (principal); L97.212 Non-pressure chronic ulcer of right calf with fat layer exposed; L97.222 Non-pressure chronic ulcer of left calf with fat layer exposed; I87.8 Other specified disorders of veins; I73.9 Peripheral vascular disease, unspecified; F41.9 Anxiety disorder, unspecified; F42.9 Obsessive-compulsive disorder, unspecified; G40.909 Epilepsy, unspecified, not intractable, without status epilepticus; Z86.19 Personal history of other infectious and parasitic diseases; Z88.8 Allergy status to other drugs, medicaments and biological substances; Z79.899 Other long term (current) drug therapy
CPT/HCPCS: 36415; 74177; 80048; 80053; 80202; 85025; 85651; 86140; 87040; 87086; 93925; 93970; J0780; J1644; J2270; J2405; J2543; J3370; J7040; J7050; Q9967; G0378; J7030